=== PATIENT | male | born 1980 | race Caucasian/White ===

== ENCOUNTER 2024-11-09 20:01 | Outpatient (OUT) | payer MEDICARE, MEDICAID, SELFPAY | END 2024-11-09 20:02 | disposition home or self-care (01) | LOC: SLEEP 20:01 | PROVIDERS: PCP Family Medicine; Visit Provider Family Medicine | DX: G47.33 Obstructive sleep apnea (adult) (pediatric) (principal) | CPT/HCPCS: 95811 ==

== ENCOUNTER 2025-08-12 11:48 | Outpatient (OUT) | payer MEDICARE, MEDICAID, SELFPAY ==
--- OUTSIDE RECORDS SUMMARY | 2024-08-02 11:30 | XMS_ITS ---
Author Organization [facility] vices Address [address] [place] [phone] Care Team Providers Care Extrusion Press Supervisor Name Role Phone Mary Lou Garcia Unavailable [phone] Kenia Roberts Unavailable [phone] REASON FOR VISIT CANCEL- Rest #12-DO Social History Sex Assigned At : Social History Observation Description Sex Assigned At Male Encounters Encounter Location Date Provider Diagnosis [facility] [address] [place], [place] [phone] 08/02/2024 Kenia Roberts Plan Of Treatment No Information Progress Notes * Perez MELO MDOB: 1 (45 yo M)Acc No.[id number]:08/02/2024 Patient:?Perez Melo :?Kenia Roberts DMDDOB:1980???Age:44 Y ???Sex:MaleDate:08/02/2024hone:[phone]:[address] [place], [place] [phone] Subjective: * Chief Complaints: * C ANCEL- Rest #12-DO * Electronic signature of Kenia Roberts DMD on 08/12/2025 at 11:51 AM ESTSign off status: Pending * Provider: Naina Roberts DMD Date: 10/02/2023 Generated for Printing/Faxing/eTransmitting on:?08/12/2025 11:51 AM EST
--- OUTSIDE RECORDS SUMMARY | 2024-08-09 11:30 | XMS_ITS ---
Author Organization [facility] vices Address [address] [place] [phone] Care Team Providers Care Telephone Operators Supervisor Name Role Phone Mary Lou Garcia Unavailable [phone] Kenia Roberts Unavailable [phone] REASON FOR VISIT CANCEL- Rest #4-MOD Social History Sex Assigned At : Social History Observation Description Sex Assigned At Male Encounters Encounter Location Date Provider Diagnosis [facility] [address] [place], [place] [id number] 08/09/2024 Kenia Roberts Plan Of Treatment No Information Progress Notes * Perez MELO MDOB: 1 (45 yo M)Acc No.[id number]:08/09/2024 Patient:?Perez Melo :?Kenia Roberts DMDDOB:1980???Age:44 Y ???Sex:MaleDate:08/09/2024hone:[phone]:[address] [place], [place] [phone] Subjective: * Chief Complaints: * C ANCEL- Rest #4-MOD * Electronic signature of Kenia Roberts DMD on 08/12/2025 at 11:50 AM ESTSign off status: Pending * Provider: Naina Roberts DMD Date: 10/09/2023 Generated for Printing/Faxing/eTransmitting on:?08/12/2025 11:50 AM EST
--- OUTSIDE RECORDS SUMMARY | 2025-08-01 12:15 | XMS_ITS ---
Author Organization [facility] vices Address [address] [place] [phone] Care Team Providers Care Document Processing Specialist Name Role Phone Mary Lou Garcia Unavailable [phone] REASON FOR VISIT Rest #20-DO Social History Sex Assigned At : Social History Observation Description Sex Assigned At Male Encounters Encounter Location Date Provider Diagnosis [facility] [address] [place], [place] [phone] 08/01/2025 Mary Lou Garcia Plan Of Treatment No Information Progress Notes * Perez MELO MDOB: 1 (45 yo M)Acc No.[id number]:08/01/2025 Patient:?Perez Melo :?Mary Lou Garcia DDSDOB:1980???Age:45 Y ???Sex:MaleDate:08/01/2025Phone:[phone]:[address] [place], [place] [phone] Subjective: * Chief Complaints: * R est #20-DO * Electronic signature of Mary Lou Garcia DDS on 08/12/2025 at 11:50 AM ESTSign off status: Pending * Provider: Paulina Garcia DDS Date: 10/01/2024 Generated for Printing/Faxing/eTransmitting on:?08/12/2025 11:50 AM EST
--- OUTSIDE RECORDS SUMMARY | 2025-08-08 12:15 | XMS_ITS ---
Author Organization [facility] vices Address [address] [place] [phone] Care Team Providers Care Veneer Lathe Operator Name Role Phone Mary Lou Garcia Unavailable [phone] REASON FOR VISIT Rest # Social History Sex Assigned At : Social History Observation Description Sex Assigned At Male Encounters Encounter Location Date Provider Diagnosis [facility] [address] [place], [place] [phone] 08/08/2025 Mary Lou Garcia Plan Of Treatment No Information Progress Notes * Perez MELO MDOB: 1 (45 yo M)Acc No.[id number]:08/08/2025 Patient:?Perez Melo :?Mary Lou Garcia DDSDOB:1980???Age:45 Y ???Sex:MaleDate:08/08/2025Phone:[phone]:[address] [place], [place] [phone] Subjective: * Chief Complaints: * R est # * Electronic signature of Mary Lou Garcia DDS on 08/12/2025 at 11:50 AM ESTSign off status: Pending * Provider: Paulina Garcia DDS Date: 10/08/2024 Generated for Printing/Faxing/eTransmitting on:?08/12/2025 11:50 AM EST
--- OUTSIDE RECORDS SUMMARY | 2025-08-12 11:51 | XMS_ITS | Patient Health Record ---
Author Organization [facility] vices Address [address] [place], [place] [phone] Care Team Providers Care Furnace Cooler Name Role Phone Mary Lou Garcia Unavailable [phone] Kenia Roberts Unavailable [phone] Allergies No Known Allergies Reason For Referral No Information Medications Medication SIG (Take, Route, Frequency, Duration) Notes Start Date End Date Status Advair Diskus 250-50 MCG/ACT Aerosol Powder Breath Activated Inhalation; Duration: 30 Days Not-Taking/PRNAlbuterolActiveAdvair HFAActiveIbuprofenActivemetFORMIN HClActive Pantoprazole SodiumActiveAdderallNot-Taking/PRNFexofenadine HClActiveCetirizine HClNot-Taking/PRNStratteraActiveVentolin HFA 108 (90 Base) MCG/ACT Aerosol SolutionInhalation; Duration: 25 DaysNot-Taking/PRNVentolin HFAActive Pantoprazole Sodium 40 MG Tablet Delayed ReleaseOral; Duration: 28 Days Not-Taking/PRNAtomoxetine HClActivemetFORMIN HCl 500 MG TabletOral; Duration: 28 DaysNot-Taking/PRNAtomoxetine HCl 60 MG CapsuleOral; Duration: 28 Days Not-Taking/PRN Social History Sex Assigned At : Social History Observation Description Sex Assigned At Male Social History Tobacco Use:Social InfoQuestionAnswerNotesTobacco Control (Standard)Additional Findings: Tobacco non-userCurrent nonsmoker Problems Problem Type SNOMED Code ICD Code Onset Dates Problem Status W/U Status Risk Notes Problem Body mass index 40+ - morbidly obese (048647822) BMI 40.0-44.9, adult (Z68.41) Activeconfirmed Vital Signs Heart Rate 94 /min 07/04/2025 Blood pressure vfvmzigkg44 mm Hg07/04/2025Weight-kg156.49 kg07/04/20253166Uusiwl73 in07/04/2025lood pressure yxwqhpqa173 mm Hg07/04/20252358Aktvtd929 lbs1MI 44.29 kg/m207/04/2025 Encounters Encounter Location Date Provider Diagnosis [facility] [address] [place], [place] [phone] 09/21/2024 Kenia Hatala Dental caries into dentine K02.62 Dental [facility] [address] [place], [place] [id number] 09/30/2024 Kenia Hatala Dental caries into dentine K02.62 [facility] [address] [place], [place] [id number] 01/07/2025 Kenia Hatala Dental caries into dentine K02.62 [facility] [address] [place], [place] [id number] 04/28/2025 Mary Lou Garcia BMI 40.0-44.9, [place] Z68.41 ; Dietary counseling Z71.3 ; Exercise counseling Z71.82 and Dental caries into dentine K02.62 [facility] [address] [place], [place] [id number] 05/05/2025 Mary Lou Garcia Dental caries into dentine K02.62 [facility] [address] [place], [place] [id number] 07/04/2025 Mary Lou Garcia BMI 40.0-44.9, [place] Z68.41 ; Dietary counseling Z71.3 ; Exercise counseling Z71.82 ; Encounter for dental examination and cleaning without abnormal findings Z01.20 and Encounter for screening for dental disorders Z13.84 Assessments Encounter Date Diagnosis (ICD Code) Assessment Notes Treatment Notes Treatment Clinical Notes Section Notes 09/21/2024 Dental caries into dentine (ICD- 10 - K02.62) 09/30/2024Dental caries into dentine (ICD-10 - K02.62)01/07/2025Dental caries into dentine (ICD-10 - K02.62)04/28/2025MI 40.0-44.9, adult (ICD-10 - Z68.41) 08/14/2025Dental caries into dentine (ICD-10 - K02.62)07/04/2025MI 40.0-44.9, adult (ICD-10 - Z68.41)07/04/2025Dietary counseling (ICD-10 - Z71.3)04/28/2025 Dietary counseling (ICD-10 - Z71.3)04/28/2025Exercise counseling (ICD-10 - Z71.82)07/04/2025Exercise counseling (ICD-10 - Z71.82)04/28/2025Dental caries into dentine (ICD-10 - K02.62)07/04/2025Encounter for dental examination and cleaning without abnormal findings (ICD-10 - Z01.20)07/04/2025Encounter for screening for dental disorders (ICD-10 - Z13.84) Plan Of Treatment No Information Insurance Providers Payer Name Payer Address Payer Phone Subscriber Number Group Number Insured Name Patient Relationship to Insured Coverage Start Date Coverage End Date DMedicaid [address] [place], [place] [id number] Karin Meloelf - patient is the [id number] 2021 Medical (General) History Medical History History ICD Code asthma diabetes
--- OUTSIDE RECORDS SUMMARY | 2025-08-12 11:51 | XMS_ITS | CCD ---
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 above:Performed By: #### CAIT, CMP, CBCA #### [facility] ([id number]) [address], [address] [place], [place] [address]Cqngolgvmzd (Bld) [#/Vol]0.1 10*3/uLNormal0.0-0.4ProBaylor Scott & White Medical Center – LakewayComment on above:Performed By: #### CAIT, CMP, CBCA #### [facility] ([id number]) [address], [address] [place], [place] [address]Ktdpmsoxuie/100 WBC (Bld)1.4 %NormalBlanchard Valley Health System Comment on above:Performed By: #### CAIT, CMP, CBCA #### [facility] ([id number]) [address] [place], [place] [address]Micmhzqyhfr distribution width (RBC) [Ratio]13.0 %Normal 11.5-15.0Bl[facility] Valley Health SystemComment on above:Performed By: #### CAIT, CMP, CBCA #### [facility] ([id number]) [address], [address] [place], [place] [address]Vwohirqnlu (Bld) [Volume fraction]48.0 %Ukvgop42-87CvfPkmivqBaylor Scott & White Medical Center – LakewayComment on above:Performed By: #### HARebekah, CMP, CBCA #### [facility] ([id number]) [address], [address] [place], [place] [address]Xhdtjrowla (Bld) [Mass/Vol]16.2 g/wJKnjdjg47.0-17.0Bl[facility] Valley Health SystemComment on above:Performed By: #### HA1C, CMP, CBCA #### [facility] ([id number]) [address], [address] [place], [place] [address]Vwrcalzxspw (Bld) [#/Vol]3.7 10*3/uLHigh1.0-3.5PSt. Rita's HospitalComment on above:Performed By: #### HARebekah, CMP, CBCA #### [facility] ([id number]) [address] [place], [place] [address]Eauammrstfw/100 WBC (Bld)36.9 %NormalProBaylor Scott & White Medical Center – Lakeway Comment on above:Performed By: #### HARebekah, CMP, CBCA #### [facility] ([id number]) [address], [address] [place], [place] [address]LAX (RBC) [Entitic mass]29.0 jhLwaybx49-19QkqBvkfzzBaylor Scott & White Medical Center – LakewayComment on above:Performed By: #### HA1C, CMP, CBCA #### [facility] ([id number]) [address], [address] [place], [place] [address]QWBW (RBC) [Mass/Vol]33.8 g/mRLrhfpr38-73TgoBiunnkBaylor Scott & White Medical Center – LakewayComment on above:Performed By: #### HA1C, CMP, CBCA #### [facility] ([id number]) [address], [address] [place], [place] [address]FZQ (RBC) [Entitic vol]86 vKQrwnli23-964KoeAezbqrBlanchard Valley Health SystemComment on above:Performed By: #### HA1C, CMP, CBCA #### [facility] ([id number]) [address], [address] [place], [place] [address]Ybdrzzqnt (Bld) [#/Vol]0.5 10*3/uLNormal0-0.9Bl[facility] Valley Health SystemComment on above:Performed By: #### HA1C, CMP, CBCA #### [facility] ([id number]) [address] [place], [place] [address]Jlanllvyg/100 WBC (Bld)5.1 %[facility] Comment on above:Performed By: #### HA1C, CMP, CBCA #### [facility] ([id number]) [address], [address] [place], [place] [address]Lzwwwrqfoaz/100 WBC (Bld)56.1 %[facility] Comment on above:Performed By: #### HA1C, CMP, CBCA #### [facility] ([id number]) [address], [address] [place], [place] [address]Srvfzhsf mean volume (Bld) [Entitic vol]10.3 fLNormal7-12 [facility] SystemComment on above:Performed By: #### HA1C, CMP, CBCA #### [facility] ([id number]) [address], [address] [place], [place] [address]Jvmzvbjfj (Bld) [#/Vol]275 10*3/iPNmhjwz743-189OzkCjflouBlanchard Valley Health SystemComment on above:Performed By: #### HA1C, CMP, CBCA #### [facility] ([id number]) [address], [address] [place], [place] [address]MBM COUNT5.60 X10E12/LNormal4.10-5.70[facility] Comment on above:Performed By: #### HA1C, CMP, CBCA #### [facility] ([id number]) [address] [place] [address]HXH (Bld) [#/Vol]10.1 10*3/uLNormal4.0-11.0ProBaylor Scott & White Medical Center – LakewayComment on above:Performed By: #### CAIT CMP, CBCA #### [facility] ([id number]) [address] [place], [place] [address]UQHDMVEZASBIO METABOLIC PANELon 46-86-2450Mjaikgo [Mass/Vol]4.8 g/dLNormal3.2-5.3Pro[facility] HospitalComment on above:Performed By: #### CAIT CMP, CBCA #### [facility] ([id number]) [address] [place] [address]LEK [Catalytic activity/Vol]64 U/NIbxpnl48-022MkvKuulfvBaylor Scott & White Medical Center – LakewayComment on above:Performed By: #### CAIT CMP, CBCA #### [facility] ([id number]) [address] [place] [address]FDF [Catalytic activity/Vol]39 U/LNormal0-40ProBaylor Scott & White Medical Center – LakewayComment on above:Performed By: #### CAIT CMP, CBCA #### [facility] ([id number]) [address] [place] [address]Wcudb gap [Moles/Vol]10 mmol/LNormal5-15ProParkview Health Montpelier Hospital HospitalComment on above:Performed By: #### CAIT, CMP, CBCA #### [facility] ([id number]) [address] [place], [place] [address]CTZ [Catalytic activity/Vol]26 U/LNormal0-41ProBaylor Scott & White Medical Center – LakewayComment on above:Performed By: #### CAIT, CMP, CBCA #### [facility] ([id number]) [address] [address] [place], [place] [address]Jxshutmue [Mass/Vol]0.7 mg/dLNormal0.3-1.2PSt. Rita's HospitalComment on above:Performed By: #### BILLY CHAVIAR CBCA #### [facility] ([id number]) [address], [facility] [address] [place], [place] [address]Uxhnnhe [Mass/Vol]10.4 mg/dLNormal8.5-10.5PSt. Rita's HospitalComment on above:Performed By: #### BILLY CHAVIRA CBCCresencio #### [facility] ([id number]) [address], [facility] [address] [place], [place] [address]Uzmbarbd [Moles/Vol]101 mmol/XJkvlqh46-327SfcZjkxjxBaylor Scott & White Medical Center – LakewayComment on above:Performed By: #### BILLY CHAVIRA CBCA #### [facility] ([id number]) [address], [address] [place], [place] [address]EL0 [Moles/Vol]25 mmol/CStikjr88-77GxtLcifbcSt. Rita's Hospital Comment on above:Performed By: #### BILLY CHAVIRA CBCA #### [facility] ([id number]) [address] [place], [place] [address]Flaosnhqxh [Mass/Vol]0.83 mg/dLNormal0.60-1.30ProBaylor Scott & White Medical Center – LakewayComment on above:Result Comment: METHOD TRACEABLE TO IDMS STANDARD Performed By: #### BILLY CHAVIRA CBCA #### [facility] ([id number]) [address] [address] [address] [place], [place] [address]oUDC (CKD-EPI) NON-RACE DEPENDENT>90Normal>59ProBaylor Scott & White Medical Center – LakewayComment on above:Result Comment: Reported eGFR is based on the CKD-EPI 2020 equation that does not use a race coefficient.Performed By: #### HA1C, CMP, CBCA #### [facility] ([id number]) [address], [address] [place] [address]Drkrpwg [Mass/Vol]92 mg/bCUzzarw55-17BquKtjywzBaylor Scott & White Medical Center – Lakeway Comment on above:Performed By: #### CAIT CMP, CBCA #### [facility] ([id number]) [address] [place], [place] [address]Wodbbcuhf [Moles/Vol]3.8 mmol/LNormal3.5-5.0ProBaylor Scott & White Medical Center – LakewayComment on above:Performed By: #### CAIT CMP, CBCA #### [facility] ([id number]) [address] [place], [place] [address]Xtmyrno [Mass/Vol]7.6 g/dLNormal6.0-8.0ProBaylor Scott & White Medical Center – LakewayComment on above:Performed By: #### CAIT CMP, CBCA #### [facility] ([id number]) [address] [place], [place] [address]Mayqui [Moles/Vol]136 mmol/UFhdpvs298-693OtgZtaxeg Fremont HospitalComment on above:Performed By: #### CAIT CMP, CBCA #### [facility] ([id number]) [address] [place], [place] [address]Xlyp nitrogen [Mass/Vol]16 mg/dLNormal5-23ProBaylor Scott & White Medical Center – LakewayComment on above:Performed By: #### CAIT CMP, CBCA #### [facility] ([id number]) [address] [place], [place] [address]GSS A1C (GLYCO-HGB)on 70-62-8646Ydnuzit [Mass/Vol]117 mg/dL NormalProBaylor Scott & White Medical Center – LakewayComment on above:Performed By: #### CAIT CMP, CBCA #### [facility] ([id number]) [address] [place] [address]QeY7n (Bld) [Mass fraction]5.7 %High4.4-5.6Bl[facility] Valley Health SystemComment on above:Result Comment: NOTE ADA Guidelines Result HgbA1c Normal : less than 5.7 % Prediabetes : 5.7 % to 6.4 % Diabetes : > 6.4 % Use with caution in patients with abnormal hemoglobin variants as the half-life of red blood cells and in vivo glycation rates are affected.Performed By: #### HA1C, CMP, CBCA #### [facility] ([id number]) [address] [place] [address]DWBGEUXARDWN - ALBUMIN:CREATININE URINE RATIOon 08-16-2024 ALB/CREAT RATIO4.9 mg/g creatNormal0.0-30.0ProBaylor Scott & White Medical Center – LakewayComment on above:Performed By: #### CARLOS #### [facility] ([id number]) [address] [place] [address]Oyzaayv DL <= 20 mg/L (U) [Mass/Vol]0.8 mg/dLNormal0.0-1.9 [facility] SystemComment on above:Performed By: #### CARLOS #### [facility] ([id number]) [address] [place] [address]FRVMN CTIED246.43 mg/dLNormalProBaylor Scott & White Medical Center – LakewayComment on above:Performed By: #### CARLOS #### [facility] ([id number]) [address] [place] [address]UbdtzSkjczrgyo Documentson 72-75-2236CkdczYljcwymjh Documents [id number]#1.00TIFFNormalFisher Greater Baltimore Medical Centerinderhannibal regional hospital 82-89-9555Hriubtkvq From: Krystal Rivera To: [facility] - Reminders/Recalls; Sent: 12/01/2023 09:27:08 EDT Show up: 10/23/2033 09:26:00 EST Subject: Ambulatory Reminder Due Date/Time: 11/20/2033 09:27:00 EST Reminder/Recall Addendum by Krystal Rivera on November 27, 2023 14:26:22 EST From: Krystal Rivera ([facility] - Reminders/Recalls) To: [facility] - Reminders/Recalls; Sent: 11/27/2023 14:26:22 EST Subject: FW: General Message Due Date/Time: 11/20/2033 14:26:00 EST Caller Name: AKILAH BOWEN; Caller Number: H , Alethea Addendum by Krystal Rivera on November 27, 2023 14:25:54 EST 11/20/2033 From: Bret Singh MD To: [facility] - Clinical; [facility] - Reminders/Recalls; Sent: 11/26/2023 15:06:46 EST Subject: General Message Caller Name: AKILAH BOWEN; Caller Number: H , M repeat colon after 10 years follow up in the office if not [facility] centerNo[facility] Postoperative Documentson [id number] Documents [id number]#1.00TIFFMcKitrick HospitalMain OR Intraoperative Recordon [id number] OR Intraoperative Record IntraOp Document Type FT Summary Primary Physician: Bret Singh MD Finalized Date/Time: 11/26/23 07:39:28 Pt. Name: AKILAH BOWEN/Sex: 1980 Male Med Rec #: [id number] Physician: Francisco RO, Bret Garrido Financial #: [id number] Pt. Type: O Room/Bed: / Admit/Disch: 11/21/23 07:44:46 - 11/21/23 23:59:59 Institution: Case Times FT Entry 1 Patient Times In Room 11/21/23 08:53:00 Out Room 11/21/23 09:34:00 Procedure Times Start 11/21/23 09:02:00 Stop 11/21/23 09:29:00 Anesthesia Times Start 11/21/23 08:53:00 Stop 11/21/23 09:34:00 Time at Cec[place] 11/21/23 09:16:00 Last Modified By: Jaki Cummings RN 11/21/23 09:35:39 General Comments: EGD end time at 0911./BURKE,RN Colonoscopy start time at 0914./KS,RN 11/26/23 Chart opened to review andsend charges LRoth CSFA Case Attendance FT Entry 1 Entry 2 Entry 3 Case Attendee Alex Yi MD, Bret Cummings RN, Jaki Will Role Performed Anesthesiologist Surgeon - Primary Supervisor Nut Processing - Primary Drawer In Dobby Loom Time In 11/21/23 08:53:00 11/21/23 08:53:00 11/21/23 08:53:00 Time Out 11/21/23 09:34:00 11/21/23 09:34:00 11/21/23 09:34:00 Procedure EGD AND COLONOSCOPY(.) EGD AND COLONOSCOPY(.) EGD AND COLONOSCOPY(.) Comments Dr. Chapman is supervising Last Modified By: Emiliano DICK, Jaki Cummings RN, Jaki Cummings RN, Jaki Will 11/21/23 09:35:40 11/21/23 09:35:40 11/21/23 09:35:40 Entry 4 Case Attendee Gregg Anders Role Performed Scrub - Primary Time In 11/21/23 08:53:00 Time Out 11/21/23 09:34:00 Procedure EGD AND COLONOSCOPY(.) Comments Last Modified By: Jaki Cummings RN 11/21/23 09:35:40 Perioperative Protocols FT Pre-Care Text: Implements protective measures prior to operative or invasive procedure, confirms identity before the operative or invasive procedure, verifies operative procedure, surgical site, and laterality Entry 1 Procedure(s) EGD AND COLONOSCOPY(.) Patient Identity Birthday, ID Band Verified (select at Check, Patient least 2): Participation Consents / H and P Anesthesia Consent, Operative Site N/A Verified HandP, Surgery/Procedure Marking Verified Consent Surgical Site No Laterality Verified n/a Verified Procedure Verified Yes Correct Patient Yes Position Verified Availability Equipment, Medication Prep Dry n/a Verified (If Applicable) PreOp Antibiotic No Time Out Alex Yi, Given Participants Bret Singh MD, Emiliano DICK, Martita Amin Micala E Time Out Complete 11/21/23 08:56:00 Outcomes Met? Yes Last Modified By: Jaki Cummings RN 11/21/23 08:56:43 Post-Care Text: The patient is free from signs and symptoms of injury caused by extraneous objects Allergy Information FT Pre-Care Text: Verifies allergies Entry 1 Allergies Reviewed? Yes Allergies Reviewed Self/Patient With Outcomes Met? Yes Last Modified By: Jaki Cummings RN 11/21/23 08:56:50 Post-Care Text: The patient received appropriate medication(s) safely administered during the perioperative period Surgical Procedures FT Entry 1 Procedure Description Procedure EGD AND COLONOSCOPY Modifiers . Surgeon Description EGD with duodenal biopsy, gastric biopsy and esophagus biopsy. Colonoscopy with random colon biopsies. Primary Procedure Yes Primary Surgeon Bret Singh MD Start 11/21/23 09:02:00 Stop 11/21/23 09:29:00 Anesthesia Type General Surgical Service Gastroenterology Wound Class 2 - Clean-Contaminated Last Modified By: Jaki Cummings RN 11/21/23 09:32:04 General Case Data FT Pre-Care Text: Classifies surgical wound, implements aseptic technique, initiates traffic control Entry 1 Case Information OR ENDO 2 FT Case Level Level 2 Wound Class 2 - Clean-Contaminated Specialty Gastroenterology ASA Class 3 Preop Diagnosis BRBPR, belching, Postop Same As Preop No odynophagia Postop Diagnosis EGD- Hiatal hernia, Outcomes Met? Yes gastropathy, salmon color mucosa. Colonoscopy- Normal. Last Modified By: Jaki Cummings RN 11/21/23 09:33:10 Post-Care Text: The patient is free from signs and symptoms of infection Skin Assessment (Pre Procedure) FT Pre-Care Text: Implements protective measures to prevent skin/ tissue injury due to thermal or mechanical sources Evaluates for signs and symptoms of physical injury to skin and tissue Entry 1 Skin Integrity Intact, [place], Warm, and Outcomes Met? Yes Dry Last Modified By: Jaki Cummings RN 11/21/23 08:58:00 Post-Care Text: The patient is free from signs and symptoms of injury caused by extraneous objects Patient Positioning FT Pre-Care Text: Identifies physical alterations that require additional precautions for procedure-specific positioning, verifies presence of prosthetics or corrective devices, positions the patient, evaluates the patient for signs and symptoms of injury as a result of position (more content not included)... [facility] HospitalProgress Note-Physicianon 81-69-1989Eyuebznx Note-PhysicianPatient: AKILAH BOWEN Age: 43 years Sex: Male : 1980 Associated Diagnoses: None Author: MD Adela, Lesli Maki Postoperative Information Postoperative disposition: Postoperative disposition: To PACU. Optimetrix number: Optimetrix number [id number]. Anesthetic utilized: General. Health Status Allergies: Allergic Reactions (Selected) No Known Medication Allergies Physical Examination VS/Measurements Pain Assessment: Controlled. General: Awake, Alert, Appropriate. Respiratory: Adequate air exchange. Cardiovascular: Stable, Normal peripheral perfusion. Neurological: Normal sensory function, Normal motor function. Assessment Anesthetic outcome No anesthetic complications noted. Adequate pain relief. able to void without difficulty, able to ambulate with assist, tolerating PO intake, no N/V. Review / Management Condition: Stable. Plan Transfer/Discharge: Transfer/Discharge Discharge when meets criteria ( To home ).[facility]rick HospitalComment on above:Result Comment: Electronically Signed By: MD Chapman Ahmad F\.br\Date and Time Signed: 11/26/23 21:39 ESTProgress Note-PhysicianPatient: AKILAH BOWEN Age: 43 years Sex: Male : 1980 Associated Diagnoses: None Author: MD Adela, Ahmatobias Maki Preoperative Information Time patient last ate or drank:=== (npo 8 hours) Anesthesia history: Patient history: No prior anesthesia problems. Re-evaluation prior to induction: Completed, Initial evaluation reviewed. Review of Systems Respiratory: No shortness of breath. Cardiovascular: No chest pain. Hematology/Lymphatics: No bruising tendency, No bleeding tendency. Health Status Allergies: Allergic Reactions (All) No Known Medication Allergies Current medications: (Selected) Documented Medications Documented Advair Diskus 250 mcg-50 mcg inhalation powder: 1 puff, Inhalation, BID, Refill(s) 0, Shortness of breath or wheezing Pantoprazole [address] Tab: 40 mg = 1 tab(s), Oral, Daily, Refills(s) 0, Control of stomach acid Ventolin HFA 90 mcg/inh Aerosol-Adpt: 1 puff(s), Inhalation, q6hr Shortness of breath or wheezing, Refill(s) 0, Shortness of breath or wheezing atomoxetine 40 mg Cap: 40 mg = 1 cap(s), Oral, qAM, Refills(s) 0, Other (see comment) fexofenadine: 180 mg, Oral, Daily, Refills(s) 0, Allergy symptoms metformin 500 mg Tab: 500 mg = 1 tab(s), Oral, BID, Refills(s) 0, Blood glucose Problem list: All Problems Burping / SNOMED CT 145932885 / Confirmed Anxiety / SNOMED CT 15535898 / Confirmed Mentally disabled / SNOMED CT 274246404 / Confirmed Morbid obesity / SNOMED CT 428863050 / Confirmed Belching / SNOMED CT 076822964 / Confirmed Odynophagia / SNOMED CT 872100953 / Confirmed BRBPR (bright red blood per rectum) / SNOMED CT 065006964 / Confirmed Heartburn / SNOMED CT 31297296 / Confirmed Resolved: Loose stools / SNOMED CT 7376169190 Resolved: Dysphagia / SNOMED CT 30538946 Histories Past Medical History: Resolved Loose stools (8587396200): Resolved. Dysphagia (11975227): Resolved. Family History: Procedure history: Colonoscopy ([id number]) on 11/21/2023 at 43 Years. EGD - esophagogastroduodenoscopy ([id number]) on 11/21/2023 at 43 Years. Social History Social & Psychosocial Habits Alcohol 11/21/2023 Use: Current Type: Beer Frequency: 1-2 times per month Substance Abuse 11/21/2023 Concerns about substance abuse in household: No Tobacco 11/21/2023 Tobacco Use: Never (less than 100 in l Smokeless tobacco use: Never . Physical Examination Please see preop flow sheet Airway: Mallampati classification: II (soft palate, fauces, uvula visible). Respiratory: Lungs are clear to auscultation. Cardiovascular: Normal rate, Regular rhythm. Neurologic: Alert. Review / Management Results review Interpretation of Outside Results Chest x-ray results Radiology results ECG interpretation Condition Plan [place] [employer] (ASA) physical status classification: Class III. Anesthetic Preoperative Plan Anesthesia: General. . Anesthetic plan, risks, benefits, and alternatives discussed with the patient and/or family. Risks discussed: nausea, vomiting, headache, sore throat, dental injury, serious complications. Patient verbalized understanding. Communication: face to face with patient 5 minutes.McKitrick HospitalComment on above:Result Comment: Electronically Signed By: MD Adela, Lesli Maki\.br\Date and Time Signed: 11/26/23 21:39 ESTConsenton [id number] [id number]#1.00[facility] HospitalDischarge Instructionson [id number] Instructions [id number]#1.00TIFMercy Health St. Charles HospitalConsent for Treatmenton 51-52-2131Yvwiddw for Treatment [id number]#1.00[facility] HospitalDischarge Instructionson 39-25-2620Fwhqcahsq Instructions AKILAH BOWEN :1980 Visit Date:11/21/2023 Inpatient Discharge Instructions Your Care Team Admitting Physician - Francisco RO, Bret Garrido Referring Physician - Bret Singh MD Reason for Your Visit BRBPR, BELCHING, ODYNOPHAGIA Your Diagnosis Gastropathy Grade II internal hemorrhoids Hernia, hiatal Tests Performed Pathology Tissue Exam -- Results Pending -- Please visit your patient portal for your results or contact your primary care physician. This Is Your Medications List albuterol (Ventolin HFA 90 mcg/inh Aerosol-Adpt) atomoxetine (atomoxetine 40 mg Cap) fexofenadine fluticasone-salmeterol (Advair Diskus 250 mcg-50 mcg inhalation powder) metformin (metformin 500 mg Tab) pantoprazole (Pantoprazole [address] Tab) Discharge Vitals Temperature (Temporal Artery) 36.0 ?C Heart Rate (Monitored) 65 Respiratory Rate 19 Blood Pressure 110/66 Height 185.4 cm Weight 149.7 kg BMI 43.55 What to do next Instructions From Your Doctor No qualifying data available. New Follow Up Appointments after Discharge Follow Up with Francisco RO, Bret Garrido, [facility], [facility] When: Comments: Office will call Date and Time of Follow-up Appt. Where: [facility], [address] [place] [address]- [phone] Medications What How Much When Instructions Next Dose Unchanged albuterol (Ventolin HFA 90 mcg/ inh Aerosol-Adpt) 1 Puffs Inhalation Every 6 hours as needed for Shortness of breath or wheezing Unchanged atomoxetine (atomoxetine 40 mg Cap) 1 Capsules By Mouth Once a day (in the morning) Unchanged fexofenadine 180 Milligram By Mouth Every day Unchanged fluticasone-salmeterol (Advair Diskus 250 mcg-50 mcg inhalation powder) 1 puff Inhalation2 times a day Unchanged metformin (metformin 500 mg Tab) 1 Tablets By Mouth 2 times a day Unchanged pantoprazole (Pantoprazole [address] Tab) 1 Tablets By Mouth Every day Test Results No qualifying data available. Allergies No Known Medication Allergies Problems Ongoing - Any problem that you are currently receiving treatment for. Anxiety Belching BRBPR (bright red blood per rectum) Burping Heartburn Mentally disabled Morbid obesity Odynophagia Historical - Any problem that you are no longer receiving treatment for. Dysphagia Loose stools Education Materials Colonoscopy Care After Surgery Please read the instructions outlined below and refer to this sheet in the next few weeks. These discharge instructions provide you with general information on caring for [facility] Your doctor may also give you specific instructions. While your treatment has been planned according to the most current medical practices available, unavoidable complications occasionally occur. If you have any problems or questions after discharge, please call your doctor. ACTIVITY You may resume your regular activity, but move at a slower pace for the next 24 hours. Take frequent rest periods for the next 24 hours. Walking will help get rid of the air and reduce the bloated feeling in your abdomen (belly). No driving for 24 hours (because of the anesthesia (medicine) used during the test). You may shower. Do not sign any important legal documents or operate any machinery for 24 hours (because of the anesthesia used during the test). NUTRITION Drink plenty of fluids. You may resume your normal diet as instructed by your doctor. Begin with a light meal and progress to your normal diet. Heavy or fried foods are harder to digestand may make you feel nauseated (sick to your stomach). Avoid alcoholic beverages for 24 hours or as instructed. MEDICATIONS You may resume your normal medications unless your doctor tells you otherwise. WHAT YOU CAN EXPECT TODAY Some feelings of bloating in the abdomen. Passage of more gas than usual. Spotting of blood in your stool or on the toilet paper. FOLLOW-UP Your doctor will discuss the results of your test with you. SEEK IMMEDIATE MEDICAL ATTENTION IF: There is more than a spotting of blood in your stool. There is abdominal distention (your abdomen is swollen). There is vomiting. You have a temperature over 101.5 F. There is abdominal pain or discomfort that is severe or gets worse throughout the day. Hemorrhoids Hemorrhoids are swollen veins in and around the rectum or anus. There are two types of hemorrhoids: ? Internal hemorrhoids. These occur in the veins that are just inside the rectum. They may poke through to the outside and become irritated and painful. ? External hemorrhoids. These occur in the veins that are outside the anus and can be felt as a painful swelling or hard lump near the anus. Most hemorrhoids do not cause serious problems, and they can be managed with home treatments such as diet and lifestyle changes. If home treatments do not help the symptoms, procedures ca (more content not included)...NormalFisher Cole Medical CenterComment on above:Result Comment: Electronically Signed By: Steff Edmonds RN\.guille\Date and Time Signed: 11/21/23 10:01ESTEndoscopic Procedure Report - Otheron [id number] Procedure Report - OtherPatient: AKILAH BOWEN Age: 43 years Sex: Male : 1980 Associated Diagnoses: None Author: Bret Singh MD Pre-Procedure Procedure Date 11/14/2023 09:11:00 . Procedure Type: Colonoscopy with biopsy. Procedure provider Performed by Bret Singh MD. Current history and physical Documented on chart. No active procedure history items have been selected or recorded.. Past Medical History Resolved Loose stools (2400287294): Resolved. Dysphagia (85336074): Resolved.. Family History . Procedure History No active procedure history items have been selected or recorded.. Colorectal neoplasm risk assessment Average risk. Informed Consent After discussing the rationale, risks and benefits, and alternatives to this procedure, the patient provided signed consent for the procedure. Pre-procedure diagnosis: Hematochezia, unexplained. Medications (Selected) Inpatient Medications Ordered Sodium Chloride 0.9% IV Yamila 1000 mL 1,000 mL: 1,000 mL, IV, 20 mL/hr, Routine, Start date 11/21/23 6:39:00 EST, 50 hour(s), Total volume (mL): 1,000, 149.7 kg, 2.78, m2 Documented Medications Documented Advair Diskus 250 mcg-50 mcg inhalation powder: 1 puff, Inhalation, BID, Refill(s) 0, Shortness of breath or wheezing Pantoprazole [address] Tab: 40 mg = 1 tab(s), Oral, Daily, Refills(s) 0, Control of stomach acid Ventolin HFA 90 mcg/inh Aerosol-Adpt: 1 puff(s), Inhalation, q6hr Shortness of breath or wheezing, Refill(s) 0, Shortness of breath or wheezing atomoxetine 40 mg Cap: 40 mg = 1 cap(s), Oral, qAM, Refills(s) 0, Other (see comment) fexofenadine: 180 mg, Oral, Daily, Refills(s) 0, Allergy symptoms metformin 500 mg Tab: 500 mg = 1 tab(s), Oral, BID, Refills(s) 0, Blood glucose ASA Classification: Class III. . Monitoring: See anesthesia record. . Procedure The procedure was performed in the hospital. See anesthesia record for sedation given during procedure. Rectal exam was performed and was normal. The patient was positioned starting in the left lateral decubitus position. Endoscope type used was. The endoscope was lubricated then introduced throughthe anus. The scope was advanced to the terminal ileum. No difficulties encountered during the procedure. The bowel preparation quality was good and was adequate (see polyps greater than or equal to 6 millimeters). The patient tolerated the procedure well. Findings Internal hemorrhoids Otherwise normal colonoscopy; status post random colon biopsies Normal terminal ileum Images Procedure images: Rec1_hd_video_2023__T09_27_[id number].jpg Rec1_hd_video_2023__T09_28_01_115.jpg Rec1_hd_video_2023__T09_29_25_777.jpg Rec1_hd_video__T09_32_48_980.jpg Rec1_hd_video__T09_34_00_374.jpg Rec1_hd_video__T09_38_13_[id number].jpg . Post-Procedure Complications: none. Estimated blood loss: none. Specimens: sent to pathology. Devices/ implants: none left in place. Impression and Plan Diagnosis: Grade II internal hemorrhoids (UOS96-GS K64.1, Working, Medical). Course: Progressing as expected. Recommendations: Repeat colonoscopy:: In 10 years. Follow-up:: As needed. Diet:: Regular diet. Medication resumption:: Continue current medications. Return to activities:: After 24 hours. Education and Follow-up: Counseled: Family. Notes: Will use an Anusul cream if rectal bleeding recurs Follow-up in the office for further recommendations.NormalFisher Cole Medical CenterComment on above:Result Comment: Electronically Signed By: Bret Singh MD\.br\Date and Time Signed: 11/20/2408:34 ESTOther Comment: Missing Attachment - attachment storage system not supported [id number] Can be viewed in source systemMissing Attachment - attachment storage system not supported [id number] Can be viewed insource systemMissing Attachment - attachment storage system not supported [id number] Can be viewed in source systemMissing Attachment - attachment storage system not supported [id number] Can be viewed in source systemMissing Attachment - attachment storage system not supported [id number] Can be viewed in source systemMissing Attachment - attachment storage system not supported [id number] Can be viewed in source systemEndoscopic Procedure Report - OtherPatient: AKILAH BOWEN Age: 43 years Sex: Male : 1980 Associated Diagnoses: None Author: Bret Singh MD Pre-Procedure Procedure Date 11/14/2023 09:18:00 . Procedure Type: Esophagogastroduodenoscopy with biopsy. Procedure provider Performed by Bret Singh MD. Current history and physical Documented on chart. Informed Consent After discussing the rationale, risks and benefits, and alternatives to this procedure, the patient provided signed consent for the procedure. Pre-procedure diagnosis: Dysphagia/ odynophagia. Diarrhea, suspected small bowel disease. Medications (Selected) Inpatient Medications Ordered Sodium Chloride 0.9% IV Yamila 1000 mL 1,000 mL: 1,000 mL, IV, 20 mL/hr, Routine, Start date 11/21/23 6:39:00 EST, 50 hour(s), Total volume (mL): 1,000, 149.7 kg, 2.78, m2 Documented Medications Documented Advair Diskus 250 mcg-50 mcg inhalation powder: 1 puff, Inhalation, BID, Refill(s) 0, Shortness of breath or wheezing Pantoprazole [address] Tab: 40 mg = 1 tab(s), Oral, Daily, Refills(s) 0, Control of stomach acid Ventolin HFA 90 mcg/inh Aerosol-Adpt: 1 puff(s), Inhalation, q6hr Shortness of breath or wheezing, Refill(s) 0, Shortness of breath or wheezing atomoxetine 40 mg Cap: 40 mg = 1 cap(s), Oral, qAM, Refills(s) 0, Other (see comment) fexofenadine: 180 mg, Oral, Daily, Refills(s) 0, Allergy symptoms metformin 500 mg Tab: 500 mg = 1 tab(s), Oral, BID, Refills(s) 0, Blood glucose ASA Classification: Class III. . Monitoring: See anesthesia record. . Procedure The procedure was performed in the hospital. See anesthesia record for sedation given during procedure. The patient was positioned starting in the left lateral decubitus position. Endoscope type usedwas, introduced orally, advanced to duodenum. No difficulty was encountered during the procedure. Views were excellent. Esophageal biopsies were taken. Gastric biopsies were taken. Duodenal biopsies were taken. The patient tolerated the procedure well. Findings Z-line irregular at 39 cm 1 tongue of stomach: Mucosa (C0 M1) status post biopsies Small hiatal hernia measuring 2 cm Patchy erythema throughout the stomach, more prominent in the fundus status post biopsies Normal duodenum status post biopsies Images Procedure images: Rec_hd_video___10_093.jpg Rec_hd_video___46_148.jpg Rec_hd_video___54_399.jpg Rec_hd_video___59_315.jpg Rec1_hd_video___24_493.jpg Rec_hd_video___38_499.jpg Rec_hd_video___20_685.jpg Rec_hd_video___41_612.jpg Rec1_hd_video_2023__01T09_15_52_339.jpg . Post-Procedure Complications: none. Estimated blood loss: none. Specimens: sent to pathology. Devices/ implants: none left in place. Impression and Plan EGD: Diagnosis: Gastropathy (DMF45-OR K31.9, Working, Medical). Course: Progressing as expected. Education and Follow-up: Counseled: Family. Notes: Continue current medications Follow GERD measures Increase pantoprazole to 40 mg twice a day Further testing to be determined after assessing response to the above changes. [facility] HospitalComment on above:Result Comment: Electronically Signed By: Francisco RO, Bret Garrido\.br\Date and Time Signed: 11/20/2408:13 EST Other Comment: Missing Attachment - attachment storage system not supported [id number] Can be viewed in source systemMissing Attachment - attachment storage system not supported [id number] Can be viewed insel[facility] hospitalce systemMissing Attachment - attachment storage system not supported [id number] Can be viewed in source systemMissing Attachment - attachment storage system not supported [id number] Can be viewed in source systemMissing Attachment - attachment storage system not supported 1034382 Can be viewed in source systemMissing Attachment - attachment storage system not supported [id number] Can be viewed in source systemMissing Attachment - attachment storage system not supported [id number] Can be viewed in source systemMissing Attachment - attachment storage system not supported [id number] Can be viewed in source systemMissing Attachment - attachment storage system not supported [id number] Can be viewed in sourcesystemMain OR PACU I Record on [id number] OR PACU I RecordPACU Phase I Document Type FT Summary Primary Physician: Bret Singh MD Finalized Date/Time: 11/21/23 10:52:51 Pt. Name: AKILAH BOWEN/Sex: 1980 Male Med Rec #: [id number] Physician: Bret Singh MD Financial #: [id number] Pt. Type: O Room/Bed: / Admit/Disch: 11/21/23 07:44:46 - Institution: Case Times PACU I FT Pre-Care Text: Identifies barriers to communication and implements measures to provide psychological support Develops individualized plan of care, and ensures continuity of care Maintains patient's dignity and privacy, and maintains patient confidentiality Identifies and reports philosophical, cultural, and spiritual beliefs and values Identifies individual values and wishes concerning care Implements aseptic technique, and administers prescribed antibiotic therapy and immunizing agents as ordered Evaluates postoperative tissue perfusion Implements thermoregulation measures, and monitors body temperature Evaluates postoperative respiratory status Evaluates postoperative cardiac status Evaluates postoperative neurological status Assesses pain control, collaborated in initiating patient-controlled analgesia and implements alternative methods of pain control Verifies allergies, administers prescribed medications and solutions, evaluates response to medications Entry 1 In PACU I 11/21/23 09:36:00 Discharge from PACU 11/21/23 10:36:00 I Outcomes Met? Yes Last Modified By: Steff Edmonds RN 11/21/23 10:52:29 Post-Care Text: The patient demonstrates knowledge of the expected response to the operative or invasive procedure The patient's care is consistent with the individualized perioperative plan of care The patient's rightto privacy is maintained The patient's value system, lifestyle, ethnicity, and culture are considered, respected, and incorporated into the perioperative plan of care The patient participates in decisions affecting his or her perioperative plan of care The patient is free from signs and symptoms of infection The patient has wound/tissue perfusion consistent with or improved from baseline levels established preoperatively The patient is at or returning to normothermia at the conclusion of the immediate postoperative period The patient's respiratory function is consistent with or improved from baseline levels established preoperativelyThe patient's cardiovascular status is consistent with or improved from baseline levels established preoperatively The patient's cardiovascular status is consistent with or improved from baseline levels established preoperatively The patient demonstrates and/or reports adequate pain control throughout the perioperative period The patient received appropriate medication(s), safely administered during the perioperativeperiod Acuity Level PACU I FT Entry 1 Start Time 11/21/23 09:36:00 Stop Time 11/21/23 10:36:00 Acuity Level Acuity Level I Last Modified By: Steff Edmonds RN 11/21/23 10:52:50 Finalized By: Steff Edmonds RN Document Signatures Signed By: Steff Edmonds RN 11/21/23 10:52[facility] OR Preoperative Recordon [id number] OR Preoperative RecordHolding Area Document Type FT Summary Primary Physician: Bret Singh MD Finalized Date/Time: 11/21/23 08:22:15 Pt. Name: AKILAH BOWEN Michelle/Sex: 1980 Male Med Rec #: [id number] Physician: Bret Singh MD Financial #: [id number] Pt. Type: O Room/Bed: / Admit/Disch: 11/21/23 07:44:46 - Institution: Case Times Holding FT Pre-Care Text: Verifies consent for planned procedure, identifies individual values and wishes concerning care, includes family members in perioperative teaching Secures patient's records' belongings, and valuables, maintains patient's dignity and privacy, and maintains patient confidentiality Entry 1 In Holding 11/21/23 08:00:00 Outcomes Met? Yes Last Modified By: Renetta Vogt 11/21/23 08:21:29 Post-Care Text: The patient participates in decisions affecting his or her perioperative plan of care The patient'sright to privacy is maintained Surgery Checklist FT Entry 1 Patient Birthday, Blood Band, Procedure History and Physical, Identification: Patient Participation Verification: Surgical Consent, With Family, With Patient NPO after Midnight: No Date/Time: 11/21/23 02:00:00 Complaints of Pain: No Pain Comment: none Operative Site n/a Availability Equipment Marking: Verified: Does Patient Smoke Yes Patient states Yes Comment - Adult Ahsan postop adult Supervision supervision available Case Cancelled in No Holding Area see comments below for reason Last Modified By: Renetta Vogt 11/21/23 08:22:12 Finalized By: Renetta Vogt Document Signatures Signed By: Renetta Vogt 11/21/23 08:22NoMartin Memorial HospitalMonitor Recordon [id number] Record [id number] HospitalPatient Education - Texton 08-95-9310Zvpxpdn Education - TextColonoscopy Care After Surgery Please read the instructions outlined below and refer to this sheet in the next few weeks. These discharge instructions provide you with general information on caring for yourself [facility] Your doctor may also give you specific instructions. While your treatment has been planned according to the most current medical practices available, unavoidable complications occasionally occur. If you have any problems or questions after discharge, please call your doctor. ACTIVITY You may resume your regular activity, but move at a slower pace for the next 24 hours. Take frequent rest periods for the next 24 hours. Walking will help get rid of the air and reduce the bloated feeling in your abdomen (belly). No driving for 24 hours (because of the anesthesia (medicine) used during the test). You may shower. Do not sign any important legal documents or operate any machinery for 24 hours (because of the anesthesia used during the test). NUTRITION Drink plenty of fluids. You may resume your normal diet as instructed by your doctor. Begin with a light meal and progress to your normal diet. Heavy or fried foods are harder to digestand may make you feel nauseated (sick to your stomach). Avoid alcoholic beverages for 24 hours or as instructed. MEDICATIONS You may resume your normal medications unless your doctor tells you otherwise. WHAT YOU CAN EXPECT TODAY Some feelings of bloating in the abdomen. Passage of more gas than usual. Spotting of blood in your stool or on the toilet paper. FOLLOW-UP Your doctor will discuss the results of your test with you. SEEK IMMEDIATE MEDICAL ATTENTION IF: There is more than a spotting of blood in your stool. There is abdominal distention (your abdomen is swollen). There is vomiting. You have a temperature over 101.5 F. There is abdominal pain or discomfort that is severe or gets worse throughout the day. Gastroenterology Hemorrhoids Hemorrhoids are swollen veins in and around the rectum or anus. There are two types of hemorrhoids: ? Internal hemorrhoids. These occur in the veins that are just inside the rectum. They may poke through to the outside and become irritated and painful. ? External hemorrhoids. These occur in the veins that are outside the anus and can be felt as a painful swelling or hard lump near the anus. Most hemorrhoids do not cause serious problems, and they can be managed with home treatments such as diet and lifestyle changes. If home treatments do not help the symptoms, procedures can be done toshrink or remove the hemorrhoids. What are the causes? This condition is caused by increased pressure in the anal area. This pressure may result from various things, including: ? Constipation. ? Straining to have a bowel movement. ? Diarrhea. ? . ? Obesity. ? Sitting for long periods of time. ? Heavy lifting or other activity that causes you to strain. ? Anal sex. ? Riding a bike for a long period of time. What are the signs or symptoms? Symptoms of this condition include: ? Pain. ? Anal itching or irritation. ? Rectal bleeding. ? Leakage of stool (feces). ? Anal swelling. ? One or more lumps around the anus. How is this diagnosed? This condition can often be diagnosed through a visual exam. Other exams or tests may also be done,such as: ? An exam that involves feeling the rectal area with a gloved hand (digital rectal exam). ? An exam of the anal canal that is done using a small tube (anoscope). ? A blood test, if you have lost a significant amount of blood. ? A test to look inside the colon using a flexible tube with a camera on the end (sigmoidoscopy or colonoscopy). How is this treated? This condition can usually be treated at home. However, various procedures may be done if dietary changes, lifestyle changes, and other home treatments do not help your symptoms. These procedures canhelp make the hemorrhoids smaller or remove them completely. Some of these procedures involve surgery, and others do not. Common procedures include: ? Rubber band ligation. Rubber bands are placed at the base of the hemorrhoids to cut off their blood supply. ? Sclerotherapy. Medicine is injected into the hemorrhoids to shrink them. ? Infrared coagulation. A type of light energy is used to get rid of the hemorrhoids. ? Hemorrhoidectomy surgery. The hemorrhoids are surgically removed, and the veins that supply them are tied off. ? Stapled hemorrhoidopexy surgery. The surgeon jodie the base of the hemorrhoid to the rectal wall. Follow these instructions at home: Eating and drinking ? Eat foods that have a lot of fiber in them, such as whole grains, beans, nuts, fruits, and vegetables. ? Ask your health care provider about taking products that have added fiber (fiber supplements). ? Reduce the amount of fat in your diet. You (more content not included)... NormalProtestant Deaconess HospitalC w/ Auto Diffon [id number] Absolute 0.1 E9/LNormal0.0-0.2FUK HealthcareComment on above:Performed By: #### [id number] ####[address] [address]Bqdvvoriy/100 WBC (Bld)1.3 %Normal0.0-2.0[facility] Comment on above:Performed By: #### [id number] ####[address] [id number] Absolute0.2 E9/LNormal0.0-0.5 The [facility] Hospital At SouthwoodsComment on above:Performed By: #### [id number] ####[address] [address] Eosinophils/100 WBC (Bld)1.7 %Normal0.0-8.0The [facility] Hospital At SouthwoodsComment on above:Performed By: #### [id number] ####[address] [address]Lwdikekhdpj distribution width (RBC) [Ratio]14.1 % Almoyl96.9-14.2FUK HealthcareComment on above:Performed By: #### [id number] ####[address] [address]Nnepmedfpu (Bld) [Volume fraction]48.0 %Mtcstw06.7-49.0The [facility] Hospital At SouthwoodsComment on above:Performed By: #### [id number] ####[address] [address]Ojssmarjzc (Bld) [Mass/Vol] 15.8 g/bEZctrej82.5-17.5FUK HealthcareComment on above:Performed By: #### [id number] ####[address], [place] [address]Pnckn Absolute3.9 E9/LNormal1.0-4.0The [facility] Hospital At SouthwoodsComment on above:Performed By: #### [id number] ####[address] [address]Nasmrfuhevc/100 WBC (Bld)38.7 %Anhqlt27.0-50.0The [facility] Hospital At SouthwoodsComment on above:Performed By: #### [id number] ####[address] [address]XQY (RBC) [Entitic mass]27.7 ieIwblns05.0-34.0[facility] Comment on above:Performed By: #### [id number] ####[address] [address]PHKW (RBC) [Mass/Vol]33.2 g/dLNormal 31.4-36.0The [facility] Hospital At SouthwoodsComment on above:Performed By: #### [id number] ####[address] [address]VYS (RBC) [Entitic vol]83.6 aHCaonpk23.0-100.0The [facility] Hospital At SouthwoodsComment on above:Performed By: #### [id number] ####[address] [address]Qmsh Absolute0.6 E9/LNormal0.2-1.0The [facility] Hospital At SouthwoodsComment on above:Performed By: #### [id number] ####[address] [address]Gsjrmjxei/100 WBC (Bld)5.8 %Normal4.0-14.0The [facility] Hospital At SouthwoodsComment on above:Performed By: #### [id number] ####[address] [address]Elikcg Absolute5.3 E9/LNormal2.0-7.5FUK HealthcareComment on above:Performed By: #### [id number] ####Matthew [address] [address]Qokuax Auto52.5 %Normal 36.0-75.0The [facility] Hospital At SouthwoodsComment on above:Performed By: #### [id number] ####Matthew [address] [address] Qyqpbjys527.0 E9/BNaubfq274.0-500.0The [facility] Hospital At SouthwoodsComment on above: Performed By: #### [id number] ####Castro [address] [address]Hqvmvwln mean volume (Bld) [Entitic vol]9.1 fL Normal6.4-10.8The [facility] Hospital At SouthwoodsComment on above:Performed By: #### [id number] ####[address] [address]QJK4.7 E12/LNormal4.3-5.9The [facility] Hospital At SouthwoodsComment on above: Performed By: #### [id number] ####[address] [address]GZU65.1 E9/LNormal4.0-11.0The [facility] Hospital At SouthwoodsComment on above:Performed By: #### [id number] ####Castro [address] [address]Ijybexg for Treatmenton 05-61-0521Qjsgsnb for [id number]#1.00TIFF [facility] HospitalConsent for Treatment [id number]#1.00TIFFNormalThe Surgical Hospital At SouthwoodsHEMATOLOGYOrdered By: SYSTEM SYSTEM on 78-76-0720Cunqqabu Absolute0.1 E9/L Normal0.0 - 0.2 E9/LRemisol HemeBasophils/100 WBC (Bld)1.3 %Normal0.0 - 2.0 % Remisol HemeEos Absolute0.2 E9/LNormal0.0 - 0.5 E9/LRemisol HemeEosinophils/100 WBC (Bld)1.7 %Normal0.0 - 8.0 %Remisol HemeErythrocyte distribution width (RBC) [Ratio]14.1 %Olgljh12.9 - 14.2 %Remisol HemeHematocrit (Bld) [Volume fraction] 48.0 %Tbuzah93.7 - 49.0 %Remisol HemeHemoglobin (Bld) [Mass/Vol]15.8 g/dLNormal 13.5 - 17.5 gm/dLRemisol HemeLymph Absolute3.9 E9/LNormal1.0 - 4.0 E9/LRemisol HemeLymphocytes/100 WBC (Bld)38.7 %Klgrrw69.0 - 50.0 %Remisol HemeMCH (RBC) [Entitic mass]27.7 hiLkvpoi10.0 - 34.0 pgRemisol HemeMCHC (RBC) [Mass/Vol]33.2 g/kRXitene71.4 - 36.0 gm/dLRemisol HemeMCV (RBC) [Entitic vol]83.6 bYEuoljz10.0 - 100.0 fLRemisol HemeMono Absolute0.6 E9/LNormal0.2 - 1.0 E9/LRemisol Heme Monocytes/100 WBC (Bld)5.8 %Normal4.0 - 14.0 %Remisol HemeNeutro Absolute5.3 E9/LNormal2.0 - 7.5 E9/LRemisol HemeNeutro Auto52.5 %Azcgmp39.0 - 75.0 %Remisol HayfBlcanexu282.0 E9/SElrchr013.0 - 500.0 E9/LRemisol HemePlatelet mean volume (Bld) [Entitic vol]9.1 fLNormal6.4 - 10.8 fLRemisol HemeRBC5.7 E12/LNormal4.3 - 5.9 E12/LRemisol UahjVLN95.1 E9/LNormal4.0 - 11.0 E9/LRemisol HemeConsent for Procedure/Surgeryon 99-01-9150Zpvrbtn for Procedure/Surgery [id number]#1.00TIFFNormalFisher [facility] And HospitalGastroenterology Office/Clinic Noteon [id number] Office/Clinic NoteChief Complaint Belching and tenderness when swallowing. HPI Staff This is a 43 year old male who presents today for a sick call for complaints of gas pain and diarrhea. EGD and Colon ordered at visit w/ Dr Cote 01/08/23, was unable to get completed d/t in family. Patient states that gas pain and diarrhea have improved. Patient c/o belching and tenderness when swallowing. History of Present Illness Patient is a 43-year-old male who presents for further evaluation of gas. Presents with his caregiver today. Patient was previously evaluated by Dr. Cote 12/2022 for loose stool, dysphagia. Note indicated patient with history of vomiting, developmental disability, and heartburn. Patient was ordered EGD/colonoscopy, patient was educated to continue pantoprazole. Patient was also ordered celiac serology andstool testing. No EGD/colonoscopy completed. Previous stool testing 12/2022 revealed normal fecal pancreatic elastase. FH stomach cancer- patient's mother. No labs available to review during today's encounter. Family history of colon cancer: Denies. Family history of colon polyps: Denies. Personal history of colon cancer: Denies. Personal history of colon polyps: Denies. Anticoagulation therapy: Denies. Antiplatelet therapy: Denies. During today's visit, patient reports he is having a lot of belching over the last year, occurring daily. He reports heartburn is well-controlled with pantoprazole 40mg daily. He explains when he swallows he has pain with solids and liquids, occurring 2-3 times a week. Is having 1 formed BM daily. Is having BRBPR with wiping on toilet paper daily over the last 6 months. Has occasional rectal painwith BRBPR. Denies having to push/strain to have a BM. Denies dysphagia, black/bloody stools, nausea/vomiting, fevers/chills, diarrhea, and denies having any other GI complaints. Review of Systems PHQ Score Initial Depression Screen Score: 0 SCORE ROS - Provider Constitutional: no fever, no chills. Skin: no Jaundice. ENMT: Denies heartburn. Respiratory: no shortness of breath. Cardiovascular: no chest pain. Gastrointestinal: no nausea, no vomiting, no diarrhea. See HPI for details regarding. Physical Exam Vitals & Measurements T: 36.4 ?C(Temporal Artery) HR: 90(Peripheral) BP: 116/80 HT: 73 in HT: 185.4 cm WT: 149.7 kg WT: 329.34 lb BMI: 43.55 General: Well developed, well nourished, in no acute distress Head: Normocephalic/atraumatic Lungs: Normal respiratory effort and clear to auscultation Cardio: Regular rate and rhythm, normal S1 and S2, no murmur, no rub Abdomen: Soft, non-distended, non-tender. Normoactive bowel sounds present in all 4 abdominal quadrants, bilaterally. Mental Status: Alert and oriented x3. Normal mood and affect Assessment/Plan 1. Belching (R14.2: Eructation) Is having a lot of belching over the last year, occurring daily. Ordered EGD to evaluate for PUD. Continue pantoprazole 40mg daily. Ordered: EGD Endoscopy (Hospital Procedure) 2. Odynophagia (R13.10: Dysphagia, unspecified) Per patient's verbalization, when swallows, he has pain with solids and liquids, occurring 2-3 times a week. Ordered EGD to further evaluate. Ordered: EGD Endoscopy (Hospital Procedure) 3. BRBPR (bright red blood per rectum) (K62.5: Hemorrhage of anus and rectum) Is having BRBPR with wiping on toilet paper daily over the last 6 months. Ordered CBC. Ordered Colonoscopy. Ordered: CBC w/ Auto Diff Colonoscopy (Hospital Procedure) 4. Heartburn (R12: Heartburn) Controlled with pantoprazole. Continue Pantoprazole 40mg daily. Follow-up With When Contact Information Qi Hernandez CNP Within 1 to 2 weeks Additional Instructions: Following EGD/Colonoscopy. Patient Education Colonoscopy, Adult Problem List/Past Medical History Ongoing Anxiety Belching BRBPR (bright red blood per rectum) Burping Heartburn Mentally disabled Morbid obesity Odynophagia Historical Dysphagia Loose stools Medications Advair Diskus 250 mcg-50 mcg inhalation powder atomoxetine 40 mg Cap fexofenadine, Oral metformin 500 mg Tab Pantoprazole [address] Eber Nyttera, Oral, qAM Sutab oral tablet, See Instructions Ventolin HFA 90 mcg/inh Aerosol-Adpt Allergies No Known Medication Allergies Social History Alcohol Current, Beer, 1-2 times per month, 01/08/2023 Substance Abuse Household substance abuse concerns: No., 01/08/2023 Tobacco Never (less than 100 in lifetime) Tobacco Use:. Never Smokeless Tobacco Use:., 11/03/2023 Family History Cancer: Negative: Mother. Immunizations Vaccine Date Status influenza virus vaccine, inactivated 07/11/2022 Recorded SARS-CoV-2 (COVID-19) mRNA-1273 vaccine 09/19/2021 Recorded SARS-CoV-2 (COVID-19) mRNA-1273 vaccine 10/30/2020 Recorded SARS-CoV-2 (COVID-19) mRNA-1273 vaccine 10/02/2020 RecordedMcKitrick HospitalComment on above:Result Comment: Electronically Signed By: Mary CUNHA, Qi Dupont\.br\Date and Time Signed: 11/03/23 14:03 ESTCOVID/FLU/RSV RT-PCRon 06-12-1209GPNH-CoV-2 (COVID-19) RNA MYRON+probe Ql (Unsp spec)Positive [employer] [facility] [place] [employer] Other COVID/FLU/RSV RT-PCRNegativeNoFTAPI SoftwareSuburban Community Hospital [place] [facility]ipherals Other Lab Reportson 29-45-9866Ddk Reports [id number]#1.00CD:[address] [place], [place] [address]Lab [id number]#1.00CD:[address] [place], [place] [address]Consent for Procedure/Surgeryon 55-57-0084Kntrsqo for Procedure/[id number]#1.00CD:[address] [place], [place] [address]Gastroenterology Office/Clinic Noteon 01-09-2023 Gastroenterology Office/Clinic NoteChief Complaint burping, loose stools and dysphagia HPI Staff Patient is a 42 year old male who was referred by House for burping, loose stools, dysphagia and food gets stuck in throat. US & labs done @ [facility]. History of Present Illness Akilah Bowen is a 42-year-old male referred by Dr. Zapata for eructation, loose stool, and dysphagiawith food becoming stuck. He has been developmentally disabled since and is accompanied by his sister who is the primary historian. However, he has no official diagnosis for his developmental delay. His symptoms began in 09/2022 after he presented to the ER for chest pain and near syncope. His dysphagia occurs intermittently and he last had an episode of dysphagia yesterday while eating pork chops. He has prior history of vomiting, eructation, heartburn, and acid reflux. Since cutting out sodaand fried foods, he has had improvement in these symptoms. He currently takes pantoprazole. He complains of loose stool intermittently, but denies hematochezia or melena. His sister reports that when he becomes anxious, he uses the bathroom more often. Review of Systems PHQ Score Initial Depression Screen Score: 0 Constitutional: no fever, no chills, no sweats, no weakness Skin: no Jaundice, no rash, no lesions, no petechiae ENMT: no ear pain, no sore throat, no congestion, no hoarseness Respiratory: no shortness of breath, no cough, no orthopnea, no wheezing Cardiovascular: no chest pain, no palpitations, no edema Gastrointestinal: no nausea, no vomiting, no constipation, no GI bleeding, no bloating, no heartburn. Positive for dysphagia, eructation, loose stool, and anxiety. Genitourinary: no dysuria, no hematuria, no discharge, no pain Musculoskeletal: no back pain, no trauma Neurologic: no numbness, no sleeping problems Additional ROS info: Except as noted in the above Review of Systems and in the History of Present Illness all other systems have been reviewed and are negative or noncontributory Physical Exam Vitals & Measurements HR: 78(Peripheral) RR: 16 BP: 112/78 HT: 73 in HT: 185.4 cm WT: 149 kg WT: 327.8 lb BMI: 43.35 Constitutional: Appearance: well developed Skin: Inspection: no rashes, ulcers, icterus, or telangiectasias. Eyes: Conjunctivae/lids: normal conjunctivae and lids. ENMT: Hearing: within normal limits. Lips/Teeth/Gums: normal oral mucosa Neck: Neck: normal motion, central trachea Respiratory: Percussion: thorax normoresonant. Auscultation: normal breath sounds; no rubs, wheezes, rale or rhonchi. Cardiovascular: Auscultation: normal rhythm, S1 and S2; no rubs, murmurs or gallop. Peripheral: no edema Gastrointestinal/Abdomen: Abdomen: normal consistency and bowel sounds; no tenderness or masses. Liver/Spleen: normal size and consistency, not palpable. Rectal: deferred Musculoskeletal: Gait/station: normal gait Assessment/Plan 1. Dysphagia (R13.10: Dysphagia, unspecified) Especially with his age, it can be related to eosinophilic esophagitis leading to esophageal narrowing with multiple episodes of food becoming stuck. I emphasized the importance of continuing with pantoprazole. We will proceed with EGD with biopsy to the esophagus to rule out that diagnosis. Other possibilities include acid reflux-induced esophagitis, peptic ulcer disease, and esophageal ulcer. We will also evaluate for all of them during the upcoming EGD. 2. Burping (R14.2: Eructation) This could be related to gastritis, esophagitis, and peptic ulcer disease. We will also evaluate that during the upcoming EGD and we will continue with pantoprazole meanwhile. 3. Loose stools (R19.5: Other fecal abnormalities) We will proceed with testing to rule out chronic etiology including celiac disease with blood testing. We will proceed with a colonoscopy to rule out Crohn's disease. We will also do stool testing torule out ova and parasites and Giardia. 4. Morbid obesity (E66.01: Morbid (severe) obesity due to excess calories) Obesity affects most of the GI related symptoms including diarrhea. He was advised to cut down on carbs and fat to control his symptoms. He was encouraged to continue decreasing his weight and following a healthy diet. 5. Anxiety (F41.9: Anxiety disorder, unspecified) We discussed that this can worsen any GI symptoms including nausea, abdominal pain, and diarrhea. Controlling the anxiety is essential and he was advised to speak with his primary care physician about this. 6. Mentally disabled (F79: Unspecified intellectual disabilities) Documentation services were performed after patient or guardian consented to allow [employer] to record this visit. ELDON health communications specialist and provider reviewed before signing. ELDON: Evelina Mendoza. Follow-up No qualifying data available Problem List/Past Medical History Ongoing Anxiety Burping Dysphagia Loose stools Mentally disabled Morbid obesity Historical No qualifying data Medications Advair Diskus 250 (more content not included)...[facility]rick HospitalComment on above:Result Comment: Electronically Signed By: Evelina Mendoza\.br\Date and Time Signed: 01/08/23 11:45 EDT\.br\Electronically Co-Signed By: Kay COTE MD\.br\Date and Time Co-Signed: 01/09/23 09:58 EDTAmbulatory Visit Summaryon [id number] Visit Summary AKILAH BOWEN :1980 Visit Date:01/08/2023 Ambulatory Visit Instructions Your Diagnosis Dysphagia Burping Loose stools Morbid obesity Anxiety Mentally disabled Your Care Team Attending Physician - Kay COTE MD Primary Care Physician - House Haseeb TRIVEDI Referring Physician - [place] Haseeb TRIVEDI This Is Your Medications List Contact prescribing physician if questions or concerns albuterol (Ventolin HFA 90 mcg/inh Aerosol-Adpt) atomoxetine (atomoxetine 40 mg Cap) fluticasone-salmeterol (Advair Diskus 250 mcg-50 mcg inhalation powder) metformin (metformin 500 mg Tab) pantoprazole (Pantoprazole [address] Tab) Discharge Vitals Heart Rate (Peripheral) 78 Respiratory Rate 16 Blood Pressure 112/78 Height 185.4 cm Height 73 in Weight 149 kg Weight 327.8 lb BMI 43.35 What to do next You Need to Complete the Following Calprotectin, Fecal, Stool, Routine collect, 01/08/23, Order for future visit, Nurse collect, Loosestools, Print Label By Order Location Fecal WBC Lactoferrin, Stool, Routine collect, 01/08/23, Order for future visit, Nurse collect, Loose stools, Print Label By Order Location Giardia lamblia, Direct Detection EIA, Stool, Routine collect, 01/08/23, Order for future visit, Nurse collect, Loose stools, Print Label By Order Location IgA, Quant., Blood, Routine collect, 01/08/23, Order for future visit, Lab Collect, Loose stools, Print Label By Order Location O & P Exam, Routine, Stool, Routine collect, 01/08/23, Order for future visit, Nurse collect, Loose stools, Print Label By Order Location Pancreatic Elastase, Fecal, Stool, Routine collect, 01/08/23, Order for future visit, Nurse collect, Loose stools, Print Label By Order Location t-Transglutaminase IgA, Blood, Routine collect, 01/08/23, Order for future visit, Lab Collect, Loose stools, Print Label By Order Location Medications What When Instructions Unchanged albuterol (Ventolin HFA 90 mcg/ inh Aerosol-Adpt) Contact prescribing physician if questions or concerns Unchanged atomoxetine (atomoxetine 40 mg Cap) Contact prescribing physician if questions or concerns Unchanged fluticasone-salmeterol (Advair Diskus 250 mcg-50 mcg inhalation powder) Contact prescribing physician if questions or concerns Unchanged metformin (metformin 500 mg Tab) Contact prescribing physician if questions or concerns Unchanged pantoprazole (Pantoprazole [address] Tab) Contact prescribing physician if questions or concerns Allergies No Known Medication Allergies Problems Ongoing - Any problem that you are currently receiving treatment for. Anxiety Burping Dysphagia Loose stools Mentally disabled Morbid obesity [facility] SINGLE QUAD RT UPPERon [id number] SINGLE QUAD RT UPPEREXAM: US SINGLE QUAD RT UPPER EXAM DATE: 11/09/2022 5:39 AM MST COMPARISON: None available. INDICATION: Right upper quadrant pain. TECHNIQUE: Limited ultrasound of the right upper quadrant of abdomen was performed. Images were reviewed on a separate workstation. FINDINGS: Hepatic parenchyma is diffusely echogenic. Hepatic length measures 20.6 cm. No focal intraparenchymal abnormality detected. Gallbladder is partially contracted. No intraluminal echogenic abnormality seen. No gallbladder wall thickening or pericholecystic fluid noted. Gallbladder wall measures 1.9 mm. Sonographic Salgado's sign is absent. No intrahepatic or extrahepatic biliary ductal dilatation noted. CBD measures 1.8 mm. Portal vein is patent with hepatopetal flow. Pancreas is partially obscured by bowel gas; visualized parenchyma appears homogeneous. Right kidney measures 11.6 x 7 x 7 cm (297 mL). No hydronephrosis or nephrolithiasis noted. No free fluid noted in the right upper abdomen. IMPRESSION: 1. Hepatic steatosis. 2. No gallstones or bile duct dilation identified. Sonographic Salgado's sign is absent. Electronically authenticated by: KARIS LAL Date: 2022-11-09 13:11[facility] HospitalNM STRESS/REST MULTIon [id number] STRESS/REST MULTIPatient: AKILAH BOWEN Exam Date: 10/24/2022 : 1980 Gender:M Ordering : DR HASEEB ZAPATA D.O. Admission #: [id number] Family : Order #: [id number] CLICK HERE TO VIEW EXAM RADIOLOGY REPORT PROCEDURE: RADIONUCLIDE IMAGING STRESS/REST MULTI COMPARISON: None. INDICATIONS: Chest pain TECHNIQUE: Exam Description: Stress/Rest two day protocol gated SPECT Rest Imagin.5 mCi Tc-99m Cardiolite IV on 10/25/2022 Stress Imaging 25.0 mCi Tc-99m Cardiolite IV on 10/24/2022 Exercise Protocol: 0.4 mg Lexiscan given IV Heart Rate (bpm): Rest: 84 Max: 110 PMHR: 61 Blood Pressure: Rest: 108/78 Max: 126/78 Symptoms: Rest and peak stress ECG findings were normal and the exercise portion of the study was normal per attending physician Dr. Fernandez . For more details please see separate cardiac stress test report. FINDINGS: QUALITY OF STUDY: Good. PERFUSION DEFECT: LOCATION: Basal inferior. Mid-inferior. Apical anterior. Apical inferior. [place]. SIZE: Large (5 or more segments). SEVERITY: Moderate. TYPE: Persistent. WALL MOTION: Normal. LV SIZE: Normal. 112 mL. TID / TCD: None; 0.9 LVEF: Normal. Calculated EF 69%. SUMMARY: Myocardial perfusion imaging study has ABNORMAL findings. CONCLUSION: 1. Areas fixed perfusion abnormality, no definite reversible ischemia 2. Normal exercise test Dictated by: Nikolas Luis MD on 10/25/2022 at 11:34 Approved by: Nikolas Luis MD on 10/25/2022 at 12:29[facility] GLYCOHEMOGLOBIN A1Con [id number] RECOMMENDATIONSEE BELOWMemorial Health System Marietta Memorial HospitalComment on above:Result Comment: ADA RECOMMENDED LIMIT 4.0 - 6.0 ADA THERAPEUTIC TARGET < 7.0 ACTION SUGGESTED > 7.0Performed By: #### A1C #### [facility] [address] [place] [address] Dr. Demetris BreauxGlucose [Mass/Vol]163 mg/dLNormalThe [facility] HospitalComment on above:Performed By: #### A1C #### [facility] [address] [address] [address] Demetris BreauxHbA1c (Bld) [Mass fraction]7.3 %Critically high4.5-6.2The [facility] HospitalComment on above:Performed By: #### A1C #### [facility] [address] [address] [address] Demetris Desai NICK ADMITon [id number] [Catalytic activity/Vol]130 U/L Cpuuum07-384Ppm [facility] HospitalComment on above:Performed By: #### CMADM, LIPA, CMP #### [facility] [address] [address] [address] Demetris Rae.MB [Mass/Vol]0.81 ng/mLNormal<=3.60[facility] Comment on above:Performed By: #### CMADM, LIPA, CMP #### [facility] [address] [place] [address] Dr. Demetris SaldañaTROP<4.4Mrlqiy6.0-76.1[facility] on above: Result Comment: CUT-OFF POINTS HAVE BEEN ESTABLISHED BASED ON THE FOURTH UNIVERSAL DEFINITIONS OF MYOCARDIAL INFARCTION. THE UPPER REFERENCE LIMIT (URL) OF TROPONIN, DEFINED THE 99TH PERCENTILE OF cTnI DISTRIBUTION IN A REFERENCE POPULATION, HAS BEEN CONFIRMED THE DECISION THRESHOLD FOR [place] DIAGNOSIS.Performed By: #### CMADM, LIPA, CMP #### [facility] [address] [place] [address] Dr. Demetris BreauxMYO52 ng/sHLbhjze47-02Yza [facility] HospitalComment on above: Performed By: #### CMADM, LIPA, CMP #### [facility] [address] [place] [address] Dr. Demetris Velazquez AUTO DIFFon [id number] #0.1 103/ulNormal0.0-0.1The [facility] HospitalComment on above:Performed By: #### CBC #### [facility] [address] [address] [address] Demetris BreauxBasophils/100 WBC (Bld)0.6 %Normal0.2-2.0[facility] Comment on above:Performed By: #### CBC #### [facility] [address] [address] [address] Demetris Weiss #0.3 103/ulNormal0.0-0.7The [facility] HospitalComment on above: Performed By: #### CBC #### [facility] [address] [place] [address] Dr. Demetris Guoosinophils/100 WBC (Bld)2.3 %Normal0.9-7.0[facility] Comment on above:Performed By: #### CBC #### [facility] [address] [place] [address] Dr. Demetris Guorythrocyte distribution width (RBC) [Ratio]12.9 %Zqghpy61.0-15.0 The [facility] HospitalComment on above:Performed By: #### CBC #### [facility] [address] [place] [address] Dr. Demetris BreauxHematocrit (Bld) [Volume fraction]43.9 %Hhbbil52.0-54.0The [facility] HospitalComment on above:Performed By: #### CBC #### [facility] [address] [place] [address] Dr. Demetris BreauxHemoglobin (Bld) [Mass/Vol]15.1 g/eGCrsflo22.0-18.0The [facility] HospitalComment on above:Performed By: #### CBC #### [facility] [address] [place] [address] Dr. Demetris Carter #0.04 10e3/ulCritically high0.00-0.03[facility] Comment on above:Performed By: #### CBC #### [facility] [address] [place] [address] Dr. Demetris Carter %0.4 %Normal0.0-0.5The Elli HospitalComment on above: Performed By: #### CBC #### [facility] [address] [address] [address] Demetris Garcia #3.3 103/ulNormal1.2-3.8[facility] on above:Performed By: #### CBC #### [facility] [address] [address] [address] Demetris Witthocytes/100 WBC (Bld)29.5 %Przuyc45.5-60.0The [facility] HospitalComment on above:Performed By: #### CBC #### [facility] [address] [place] [address] Dr. Demetris Molina DIFF REQNONormalThe [facility] HospitalComment on above: Performed By: #### CBC #### [facility] [address] [place] [address] Dr. Demetris Smith (RBC) [Entitic mass]28.2 chUjtlrm51.9-34.0The [facility] HospitalComment on above:Performed By: #### CBC #### [facility] [address] [place] [address] Dr. Demetris Ramos (RBC) [Mass/Vol]34.4 g/iEZnmrav65.9-35.2[facility] on above:Performed By: #### CBC #### [facility] [address] [place] [address] Dr. Demetris Ramos (RBC) [Entitic vol]82.1 dVMynrqq82.0-94.0The [facility] HospitalComment on above:Performed By: #### CBC #### [facility] [address] [place] [address] Dr. Demetris Pierre #0.6 103/ulNormal0.3-0.8[facility] on above:Performed By: #### CBC #### [facility] [address] [place] [address] Dr. Demetris Beardocytes/100 WBC (Bld)5.4 %Normal1.7-12.0[facility] Comment on above:Performed By: #### CBC #### [facility] [address] [place] [address] Dr. Demetris Quispe #6.8 103/ulCritically high1.4-6.5[facility] Comment on above:Performed By: #### CBC #### [facility] [address] [place] [address] Dr. Demetris Schusterutrophils/100 WBC (Bld)61.8 %Xcapio38.0-75.0[facility] ShawComment on above:Performed By: #### CBC #### [facility] [address] [place] [address] Dr. Demetris Lutzlet mean volume (Bld) [Entitic vol]10.9 fLNormal9.5-13.5The [facility] HospitalComment on above:Performed By: #### CBC #### [facility] [address] [place] [address] Dr. Demetris BreauxPLT266 103/ltKpuwdq606-047Zfs [facility] HospitalComment on above: Performed By: #### CBC #### [facility] [address] [place] [address] Dr. Demetris BreauxRBC5.35 106/ulNormal4.70-6.10The [facility] HospitalComment on above:Performed By: #### CBC #### [facility] [address] [place] [address] Dr. Demetris BreauxWBC11.1 103/ulCritically high4.0-11.0[facility] ShawComment on above:Performed By: #### CBC #### [facility] [address] [place] [address] Dr. Demetris Murguia-19 PCR ([facility])on 47-30-7820CTII-CoV-2 (COVID-19) RNA MYRON+probe Ql (Unsp spec)Not detectedNormalNOT DETECTEDThe [facility] Comment on above:Result Comment: When diagnostic testing is negative, the possibility of a false negative should be considered in the context of a patient's recent exposures and the presence of clinical signs and symptoms consistent with SARS-CoV-2. This test is not yet approved or cleared by the [place] FDA. When there are no FDA-approved or cleared tests available, and other criteria are met, FDA can make tests available under an emergency access mechanism called an Emergency Use Authorization (EUA). The EUA for this test is supported by the [place] of Health and Human Service's declaration that circumstances exist to justify the emergency use of in vitro diagnostics for the detection and/or diagnosis of the virus that causes COVID-19. This EUA will remain in effect for the duration of the COVID-19 declaration justifying emergency of IVDs, unless it is terminated or revoked by the FDA (after which the test may no longer be used).Performed By: #### CVDTBH #### [facility] [address] [place] [address] Dr. Demetris Deal URINE PROFILEon 67-60-0441Ivtqaljjo Ql (U)NegativeNormal NEGATIVESelect Medical [facility] ShawComment on above:Performed By: #### ERUR #### [facility] [address] [place] [address] Dr. Demetris BreauxClarity (U)CLEARNormalCLEARSelect Medical [facility] ShawComment on above: Performed By: #### ERUR #### [facility] [address] [place] [address] Dr. Demetris Lin (U)YELLOWNormalYELLOWSelect Medical [facility] ShawComment on above: Performed By: #### ERUR #### [facility] [address] [place] [address] Dr. Demetris Muhammad micrscopic examination will be performed if indicated. NormalSelect Medical [facility], [facility] ShawComment on above:Performed By: #### ERUR #### [facility] [address] [place] [address] Dr. Demetris BreauxGlucose Ql (U)NegativeNormalNEGATIVESelect Medical [facility] ShawComment on above:Performed By: #### ERUR #### [facility] [address] [place] [address] Dr. Demetris BreauxHemoglobin Ql (U)NegativeNormalNEGATIVESelect [facility] Comment on above:Performed By: #### ERUR #### [facility] [address] [address] [address] Demetris Vance Ql (U)NegativeNormalNEGATIVESelect Medical [facility] ShawComment on above:Performed By: #### ERUR #### [facility] [address] [place] [address] Dr. Demetris BreauxLEUKOCYTESNegativeNormalNEGATIVESelect [facility] ShawComment on above:Performed By: #### ERUR #### [facility] [address] [place] [address] Dr. Demetris Esparzatrmalka Ql (U)NegativeNormalNEGATIVESelect Medical [facility] ShawComment on above:Performed By: #### ERUR #### [facility] [address] [place] [address] Dr. Demetris BreauxpH (U)5.5 [pH]Normal5-9The [facility] HospitalComment on above: Performed By: #### ERUR #### [facility] [address] [place] [address] Dr. Demetris BreauxSPEC GRAVITY>=1.924Cjoznnau8.005-<=1.025[facility] Comment on above:Performed By: #### ERUR #### [facility] [address] [place] [address] Dr. Demetris Whitaker PROTEINNegativermalNEGATIVE/ TRACEThe [facility] Comment on above:Performed By: #### ERUR #### [facility] [address] [place] [address] Dr. Demetris Flowers MICRO INDNOT INDICATEDNoPremier Health Upper Valley Medical CenterComment on above:Performed By: #### ERUR #### [facility] [address] [place] [address] Dr. Demetris Oliverosgen Qn (U)0.2 {Navjot'U}/dLNormal0.2 - 1.0[facility] ShawComment on above:Performed By: #### ERUR #### [facility] [address] [place] [address] Dr. Demetris Dupont STREP CULTUREon 09-26-2022S. pyogenes Ag Ql (Unsp spec) Culture Observations: NEGATIVE FOR GROUP A STREPTOCOCCUS.NormalThe [facility] on above: Performed By: #### CMADM, LIPA, CMP #### [facility] [address] [place] [address] Dr. Demetris Dupont AND B AGon 07-31-9780ACQRMLJZGZPDTKettering Health Behavioral Medical CenterComment on above:Result Comment: Negative for Flu A protein angiten. Infection due to Flu A cannot be ruled out. FluA angiten in the sample may be below the detection limit of the test.Performed By: #### CMADM, LIPA, CMP #### [address] [address] Dr[address] Demetris RiderUBNEGFisher-Titus [facility] on above: Result Comment: Negative for Flu B protein antigen. Infection due to Flu B cannot be ruled out. FluB antigen in the sample may be below the detection limit of the test.Performed By: #### CMADM, LIPA, CMP #### [facility] [address] [place] [address] Dr. Demetris Dupont AGNegativeNormalNEGATIVE SEE COMMENTThe [facility] on above:Performed By: #### CMADM, LIPA, CMP #### [facility] [address] [place] [address] Dr. Demetris Rivas AGNegativeNormalNEGATIVE SEE COMMENTThe [facility] on above:Performed By: #### CMADM, LIPA, CMP #### [facility] [address] [place] [address] Dr. Demetris RaymundoASEon 21-34-0529Vgpkme [Catalytic activity/Vol]59.0 U/L Critically low73.0-393.0[facility] on above:Performed By: #### CMADM, LIPA, CMP #### [facility] [address] [place] [address] Dr. Demetris Burch 14(COMP METB)on 22-54-2737Supezuy [Mass/Vol]3.7 g/dLNormal 3.4-5.0The [facility] HospitalComment on above:Performed By: #### CMADM, LIPA, CMP #### [facility] [address] [address] [address] Demetris BreauxAlbumin/Globulin [Mass ratio]1.0 {ratio}NormalThe [facility] HospitalComment on above:Performed By: #### CMADM, LIPA, CMP #### [facility] [address] [address] [address] Demetris Espinosa [Catalytic activity/Vol]98 U/TLeufgo24-055Cuf [facility] HospitalComment on above:Performed By: #### CMADM, LIPA, CMP #### [facility] [address] [address] [address] Demetris Herrera [Catalytic activity/Vol]101 U/LCritically bahh67-28Xic [facility] HospitalComment on above:Performed By: #### CMADM, LIPA, CMP #### [facility] [address] [address] [address] Demetris Villalpando gap [Moles/Vol]13.4 mmol/LNormalThe [facility] Comment on above:Performed By: #### CMADM, LIPA, CMP #### [facility] [address] [address] [address] Demetris BreauxAST [Catalytic activity/Vol]84 U/LCritically gtno10-54Xnz [facility] HospitalComment on above:Performed By: #### CMADM, LIPA, CMP #### [facility] [address] [address] [address] Demetris BreauxBilirubin [Mass/Vol]0.8 mg/dLNormal0.2-1.0[facility] Comment on above:Performed By: #### CMADM, LIPA, CMP #### [facility] [address] [address] [address] Demetris BreauxCalcium [Mass/Vol]9.2 mg/dLNormal8.5-10.1The [facility] Comment on above:Performed By: #### CMADM, LIPA, CMP #### [facility] [address] [address] [address] Demetris BreauxChloride [Moles/Vol]100 mmol/AFzwtfj21-681Jtm [facility] Comment on above:Performed By: #### CMADM, LIPA, CMP #### [facility] [address] [address] [address] Demetris BreauxCO2 [Moles/Vol]26.3 mmol/IWuyyui85.0-32.0[facility] Comment on above:Performed By: #### CMADM, LIPA, CMP #### [facility] [address] [place] [address] Dr. Demetris BreauxCreatinine [Mass/Vol]0.79 mg/dLNormal0.70-1.30The [facility] HospitalComment on above:Performed By: #### CMADM, LIPA, CMP #### [facility] [address] [place] [address] Dr. Demetris GuoGFR-AF MACANESE>60Normal>=60The [facility] HospitalComment on above:Performed By: #### CMADM, LIPA, CMP #### [facility] [address] [place] [address] Dr. Demetris GuoGFR-NON AF MACANESE>60Normal>=60The [facility] HospitalComment on above:Performed By: #### CMADM, LIPA, CMP #### [facility] [address] [place] [address] Dr. Demetris BreauxGlobulin (S) [Mass/Vol]3.8 g/dLNormalThe [facility] HospitalComment on above:Performed By: #### CMADM, LIPA, CMP #### [facility] [address] [place] [address] Dr. Demetris BreauxGlucose [Mass/Vol]138 mg/dLCritically eyrk32-620Kfs [facility] HospitalComment on above:Performed By: #### CMADM, LIPA, CMP #### [facility] [address] [address] [address] Demetris BreauxPotassium [Moles/Vol]3.7 mmol/LNormal3.5-5.1[facility] Comment on above:Performed By: #### CMADM, LIPA, CMP #### [facility] [address] [address] [address] Demetris BreauxProtein [Mass/Vol]7.5 g/dLNormal6.4-8.2[facility] Comment on above:Performed By: #### CMADM, LIPA, CMP #### [facility] [address] [place] [address] Dr. Demetris BreauxSodium [Moles/Vol]136 mmol/EKhsgzj009-505Gay [facility] Comment on above:Performed By: #### CMADM, LIPA, CMP #### [facility] [address] [place] [address] Dr. Demetris BreauxUrea nitrogen [Mass/Vol]12.0 mg/dLNormal7.0-18.0The [facility] HospitalComment on above:Performed By: #### CMADM, LIPA, CMP #### [facility] [address] [place] [address] Dr. Demetris Vee nitrogen/Creatinine [Mass ratio]15.2 mg/mgNormalThe [facility] HospitalComment on above:Performed By: #### CMADM, LIPA, CMP #### [facility] [address] [place] [address] Dr. Demetris BreauxSTREPT SCREENon 07-64-9110AYHAT SCREEN ANegativeNormalNEGATIVEThe [facility] HospitalComment on above:Performed By: #### CMADM, LIPA, CMP #### [facility] [address] [place] [address] Dr. Demetris Ferreira, HIGH SENSITIVITYon 93-90-3509GYURZF2.2 pg/mLNormal 4.0-76.1The [facility] HospitalComment on above:Result Comment: CUT-OFF POINTS HAVE BEEN ESTABLISHED BASED ON THE FOURTH UNIVERSAL DEFINITIONS OF MYOCARDIAL INFARCTION. THE UPPER REFERENCE LIMIT (URL) OF TROPONIN, DEFINED THE 99TH PERCENTILE OF cTnI DISTRIBUTION IN A REFERENCE POPULATION, HAS BEEN CONFIRMED THE DECISION THRESHOLD FOR [place] DIAGNOSIS.Performed By: #### CMADM, LIPA, CMP #### [facility] [address] [place], [place] [address] Dr. Demetris BreauxXR CHEST 1 Von 74-07-6420NF CHEST 1 VEXAMINATION: XR CHEST 1 V HISTORY: CHEST PAIN, UNSPECIFIED COMPARISON: XR chest 01/09/2011 FINDINGS: LUNGS: Underexpanded lungs with mild haziness bilaterally, slightly greater within lung bases. VASCULATURE: No increased pulmonary vasculature. PLEURA: No pneumothorax, effusion, or pleural thickening. CARDIAC: No cardiomegaly or cardiac silhouette abnormality. MEDIASTINUM: No visible mass or adenopathy. BONES: No fracture or visible bone lesion. OTHER: Negative. IMPRESSION: 1. Low lung volume examination with mild bilateral atelectasis. Infectious etiology and pulmonary edema are not completely excluded but felt less likely. Electronically authenticated by: SHEYLA BEAVERS Date: 2022-09-26 13:15NMer[facility] Vital Signs Date TimeVital SignValuePerforming OzngicqyfUrtbxngl12-81-7217 17:35-0400Body ojvyxd510.96 cmOhio[facility]06-[facility]-2024 17:35-0400Body mass index (BMI) [Ratio]42.3 kg/v8LmtdnubdlOhiohealth Grant Medical Center06-19-2024 17:35-0400Body fosgifbqouv05.6 [degF][facility]06-19-2024 17:35-0400Body olsuov278.68 kgOhiohealth Grant Medical Center06-19-2024 17:35-0400Diastolic blood xtjfuval56 mm[Hg][facility] 03-10-2024 17:35-0400Heart rate79 /[facility] 03-10-2024 17:35-0400Respiratory rate18 /[facility] 03-10-2024 17:35-0036XeG2% (BldA) [Mass fraction]98 %[facility]06-19-2024 17:35-0400Systolic blood mvvjnyir751 mm[Hg][facility]03-01-2024 10:27-0500Diastolic blood fqsghhyd84 mm[Hg]Mohamad Mouchli [address] [place], [place] [id number] 10:27-0500Heart rate73 /minMohamad Mouchli [address] [place], [place] [id number] 10:27-0500Mean blood yexvomrs83 mm[Hg]Mohamad Mouchli [address] [place], [place] [id number] 10:27-0500 Respiratory rate16 /minMohamad Mouchli [address] [place], [place] [id number] 10:27-2915RjI6% (BldA) [Mass fraction]96 %Mohamad Mouchli [address] [place], [place] [id number] 10:27-0500 Systolic blood xprvsjdi495 mm[Hg]Mohamad Mouchli [address] [place], [place] [id number] 10:10-0500 Diastolic blood qczpzysn17 mm[Hg]Mohamad Mouchli [address] [place], [place] [id number] 10:10-0500Heart rate73 /minMohamad Mouchli [address] [place], [place] [id number] 10:10-0500Mean blood gmgbsiza91 mm[Hg]Mohamad Mouchli [address] [place], [place] [id number] 10:10-0500 Respiratory rate16 /minMohamad Mouchli [address] [place], [place] [id number] 10:10-9358SmU3% (BldA) [Mass fraction]97 %Mohamad Mouchli [address] [place], [place] [id number] 10:10-0500 Systolic blood qqngdcej202 mm[Hg]Mohamad Mouchli [facility]03-01-2024 10:05-0500 Diastolic blood ksecgbbz94 mm[Hg]Mohamad Mouchli [address] [place], [place] [id number] 10:05-0500Heart rate67 /minMohamad Mouchli [address] [place], [place] [id number] 10:05-0500Mean blood wpnbyeim66 mm[Hg]Mohamad Mouchli [address] [place], [place] [id number] 10:05-0500 Respiratory rate16 /minMohamad Mouchli [address] [place], [place] [id number] 10:05-5468RlQ2% (BldA) [Mass fraction]98 %Mohamad Mouchli [address] [place], [place] [id number] 10:05-0500 Systolic blood npzlkiif228 mm[Hg]Mohamad Mouchli [address] [place], [place] [id number] 09:40-0500Blood Pressure LocationMohamad Mouchli [address] [place], [place] [id number] 09:36-0500Body itfjjvfcmnv80.8 [degF]Mohamad Mouchli [address] [place], [place] [id number] 09:30-0500 Respiratory rate19 /minMohamad Mouchli [address] [place], [place] [id number] 09:25-0500 Respiratory rate19 /minMohamad Mouchli [address] [place], [place] [id number] 09:20-0500 Respiratory rate15 /minMohamad Mouchli [address] [place], [place] 3032403-01-2024 08:20-0500Body tbfjxsyaqwl52.98 [degF]Delgadotobias Singh [facility]02-12-2024 13:40-0500Blood Pressure LocationQi Hernandez [phone]-Jkezg[address] [place], [place] 7861402-12-2024 13:40-0500Body aadxtjquicx26.52 [degF]Qi Hernandez [phone]-Fyzbq[address] [place], [place] 7861402-12-2024 13:40-0500Diastolic blood diuvrftd28 mm[Hg]Qi Hernandez [phone]-Mavdq[address] [place], [place] 7861402-12-2024 13:40-0500Heart rate90 /minQi Hernandez [phone]-Yhoyn[address] [place], [place] 7861402-12-2024 13:40-0500Systolic blood dbvcudgs446 mm[Hg]Qi Hernandez [phone]-Wgmfb[address] [place], [place] 7861401-05-2024 14:00-0500Body svmeju908.96 Lakhwinder Chavira Other [facility] [employer] Other 01-05-2024 14:00-0500Body mass index (BMI) [Ratio] 43.16 kg/e0JcissfMica Chavira Other [facility] [employer] Other 01-05-2024 14:00-0500Body .3 [degF]Mica Chavira Other [employer] Other 01-05-2024 14:00-0500Body uwsbhr001.5 kgMica Chavira Other [facility] [employer] Other 01-05-2024 14:00-0500Diastolic blood qapgdygu84 mm[Hg] Mica Chavira Other nort [employer] Other 01-05-2024 14:00-0500Respiratory rate18 /Tobi Chavira Other [facility] [employer] Other 01-05-2024 14:00-4941XhW8% (BldA) [Mass fraction]96 % Mica Chavira Other [facility] [employer] Other 01-05-2024 14:00-0500Systolic blood mm[Hg] Mica Chavira Other [facility] [employer] Other 04-19-2023 08:43-0400Blood Pressure LocationMaher SALAM [phone]-RueelOhiohealth [facility]04-19-2023 08:43-0400Diastolic blood akkbdprw81 mm[Hg]Villanueva SALAM [phone]-TysnyOhiohealth [facility]04-19-2023 08:43-0400Heart rate78 /minMaher SALAM [phone]-VrrjuOhiohealth [facility] Hospital04-19-2023 08:43-0400Respiratory rate16 /minMaher SALAM [phone]-VkfjdOhiohealth [facility] Hospital04-19-2023 08:43-0400Systolic blood ouvsrrsd828 mm[Hg]Villanueva SALAM [phone]-TnnioMiddletown Hospital [facility] Encounters Encounter DateEncounter TypeCare ProviderFacilityStart: 85-51-6052kcigerrgir CHARLES P HOUSEProMedica Hondo HospitalStart: 06-02-2025 End: 15-88-3568aoblclupvvJCIBSMA P HOUSEFacility:[facility] ClinicStart: 11-04-2024 ambulatoryCHARLES P HOUSEFacility:[facility] ClinicStart: 09-02-2024 End: 50-15-3851yymiczqqkxWUXILHH P HOUSEFacility:[facility] ClinicStart: 08-25-2024 End: 32-46-3761Ikyishfqj department patient visitCHARLES P [facility] HospitalStart: 08-16-2024 End: 40-40-0444qdpnpkmblhAGVOFVN P [facility] HospitalStart: 08-05-2024 End: 37-53-1275etgudxjyuaOJSZATA P HOUSEFacility:[facility] ClinicStart: 03-10-2024 End: 22-76-1053zufxrkvbmcOzlhejpyvSelect Medical [facility] Work Phone: Start: 03-10-2024 End: 29-87-3640Wijabnm encounter procedureNov[facility] [place] Work Phone: Start: 12-25-2023 End: 66-36-9408wbxmrrsyelPldxiyu A. MouchliFacility:[facility] DHStart: 12-25-2023 End: 20-63-3437Vaqhsns encounter procedureBret Singh [phone]-RiamcMiddletown Hospital [facility] Start: 11-21-2023 End: 02-94-9937pqxibplxfvHydvfds A. MouchliFacility:FTMCStart: 11-21-2023 End: 77-51-1099Elvnfck encounter procedureBret Singh [facility] Start: 11-14-2023 End: 12-20-7545lhiijlkxrqOfea A SteinmetzFacility:FTMCStart: 11-14-2023 End: 93-73-9155Gwyekuz encounter Remy Hernandez [facility] Start: 11-03-2023 End: 88-80-9850sknkulegthXyim A SteinmetzFacility:[facility] DHStart: 11-03-2023 End: 27-82-9454Bgloknd encounter procedureBemae Cresencio Mary [phone]-HxbsgMiddletown Hospital [facility] Start: 09-26-2023 End: 80-19-7316vsnxyzcdxgAkmeeo Dymond Other [place] [employer] Other Start: 72-95-9067Uhdjyk outpatient visit 15 minutes iMca [facility] ClydeStart: 01-08-2023 End: 08-12-8817yzhbwubvmiEpaeg SALAMFacility:[facility] DHStart: 01-08-2023 End: 68-14-4143Guw-admission assessmentMaher SALAM [facility] Start: 01-08-2023 End: 43-09-1365Srczuez encounter procedureMaher SALAM [phone]-XjdgkM[facility] Start: 11-09-2022 End: 72-71-9007ooyremcehhJF CHARLES HOUSEFacility:X4Ljonl: 10-24-2022 End: 95-15-2946xofxikixrrII CHARLES HOUSEFacility:C3Halzi: 10-12-2022 End: 19-04-8338umhcrqrhvgNF CHARLES HOUSEFacility:J9Vumbx: 09-26-2022 End: 88-27-1340ykzcnluuamNNVKSC RODRIGUEZ .Facility: Procedures DateProcedureProcedure DetailPerforming ClinicianStart: 46-08-7771Zxrpjvsgkqm Mohregina Singh Start: 64-63-7188UpyikdjgeesczjuceqzdebofdhYxolaro [place] Immunizations Immunization DateImmunizationNotesCare JegnbxflHjccwqvf15-06-5526tfmrsyhji virus vaccine, unspecified formulationMaher SALAM [phone]-AwildMiddletown Hospital Digestive Ydcpus87-07-6465 SARS-CoV-2 (COVID-19) mRNA-1273 vaccineMaher SALAM [phone]-FdrhkMiddletown Hospital Digest[facility] Dwuxwb80-92-7611 SARS-CoV-2 (COVID-19) mRNA-1273 vaccineMaher SALAM [phone]-KdpwyMiddletown Hospital Digest[facility] Okadpv13-26-8231 SARS-CoV-2 (COVID-19) mRNA-1273 vaccineMaher SALAM [phone]-SuymnMiddletown Hospital [facility] Payers DatePayer CategoryPayerPolicy [id number] 2..[id number] 2..[id number] 2..1.938337.3.57[id number] 2..1.773708.3.57[id number] 2..1.573798.3.57[id number] 2..1.217979.3.57[id number] 2..1.548031.3.57[id number] 2..1.419867.3.57[id number] 2.0.1.184314.3.57[id number] 2.16.840.1.505760.3.57[id number] 2.16.840.1.889144.3.57[id number] 2.16.840.1.127541.3.57[id number] 2.16.840.1.007833.3.57[id number] 2.16.840.1.232761.3.57[id number] 2.16.840.1.293910.3.57[id number] 2..840.1.895806.3.57[id number] 2.16.840.1.291387.3.579.2.718 [id number] 1959Medicare [id number] Social History DateTypeDetailFacilityStart: 01-08-2023 End: 17-46-8258Gsicjjv smoking statusNever smoked tobacco (finding)[facility] HealthSex [facility] At [facility] HospitalTobacco smoking statusNeverM[facility] Start: 50-62-4857Pwi Assigned At [facility] Functional Status EqxnWulkqfwftiZvdvysKhucwnuq34-80-5964Ubtxvmyrdb StatusN/[facility]02-12-2024Functional StatusN/[facility] Mqzsyc23-08-6678Lskmuqhfnx StatusN/[facility] Clinical Notes 01-08-2023 to 07-18-2025 Note Date & OeijQjkgRdevbdsf11-62-2327 NoteEntered by HASEEB ZAPATA DO on July 18, 2025 11:40:19 EDT From: HASEEB ZAPATA DO [facility] Sent: 07/18/2025 11:40:19 EDT Subject: Medication Management Submitted: Complete:metFORMIN (metFORMIN 500 mg oral tablet) Signed by HASEEB ZAPATA DO 07/18/2025 11:40:00 EDT Approved with modifications: metFORMIN (metFORMIN HCl 500MG TABS*) TAKE 2 TABLETS BY MOUTH TWICE A DAY Qty: 112 tab(s) Days Supply: 28 Refills: 5 Substitutions [facility] from [facility]: We are preparing the patient's next set of med packs. Due to us filing these packs for a 28 day supply this medication is out of refills. Please send refills. From: [facility] - To: HASEEB ZAPATA DO Sent: July 18, 2025 10:00:08 AM CDT Subject: Medication Management Due: July 19, 2025 12:08:24 AM CDT On Hold Pending Signature Drug: metFORMIN (metFORMIN 500 mg oral tablet), TAKE 2 TABLETS BY MOUTH TWICE A DAY Quantity: 112 tab(s) Days Supply: 28 Refills: 5 Substitutions Allowed Notes from Pharmacy: Maximum Refills Reached Dispensed Drug: metFORMIN (metFORMIN 500 mg oral tablet), TAKE 2 TABLETS BY MOUTH TWICE A DAY Quantity: 112 tab(s) Days Supply: 28 Refills: 0 Substitutions Allowed Notes from Pharmacy: We are preparing the patient?s next set of med packs. Due to us filing these packs for a 28 day supply this medication is out of refills. Please [facility] refills. [facility] HospitalHtznlyok16-19-9207 Note Entered by HASEEB ZAPATA DO on June 20, 2025 16:43:53 EDT From: HASEEB ZAPATA DO To: [facility] [place] Sent: 06/20/2025 16:43:53 EDT Subject: Medication Management Submitted: Complete:fluticasone-salmeterol (Advair Diskus 250 mcg-50 mcg inhalation powder) Signed by HASEEB ZAPATA DO 06/20/2025 16:43:00 EDT Approved with modifications: fluticasone-salmeterol (Advair Diskus 250-50MCG/ACT AEPB) INHALE 1 DOSE BY MOUTH TWICE A DAY *[place] WITH WATER AFTER EACH USE* Qty: 60 EA Days Supply: 30 Refills: 5 Substitutions Allowed Route To Pharmacy - [facility] [place] Note from Pharmacy: Maximum Refills Reached From: [facility] To: HASEEB ZAPATA DO Sent: June 20, 2025 3:25:43 PM CDT Subject: Medication Management Due: June 21, 2025 12:03:03 AM CDT On Hold Pending Signature Drug: fluticasone-salmeterol (Advair Diskus 250 mcg-50 mcg inhalation powder), INHALE 1 DOSE BY MOUTH TWICE A DAY *RINSE MOUTH WITH WATER AFTER EACH USE* Quantity: 60 EA Days Supply: 30 Refills: 5 Substitutions Allowed Notes from Pharmacy: Maximum Refills Reached Dispensed Drug: fluticasone-salmeterol (Advair Diskus 250 mcg-50 mcg inhalation powder), INHALE 1 DOSE BY MOUTH TWICE A DAY *RINSE MOUTH WITH WATER AFTER EACH USE* Quantity: 60 EA Days Supply: 30 Refills: 0 Substitutions Allowed Notes from Pharmacy: Maximum Refills Reached [facility] HospitalFvlwpvlh72-11-7787 Note Entered by HASEEB ZAPATA DO on May 25, 2025 16:44:53 EDT From: HASEEB ZAPATA DO To: [facility] [place] Sent: 05/25/2025 16:44:53 EDT Subject: Medication Management Submitted: Complete:atomoxetine (atomoxetine 60 mg oral capsule) Signed by HASEEB ZAPATA DO 05/25/2025 16:44:00 EDT Submitted: Complete:fexofenadine (Allergy Relief (Fexofenadine HCl) 180 mg oral tablet) Signed by HASEEB ZAPATA DO 05/25/2025 16:44:00 EDT Approved with modifications: atomoxetine (Atomoxetine HCl 60MG CAPS) TAKE 1 CAPSULE BY MOUTH DAILY IN THE EVENING Qty: 28 cap(s) Days Supply: 28 Refills: 5 Substitutions Allowed Route To Pharmacy [facility] Note from Pharmacy: Maximum Refills Reached Approved with modifications: fexofenadine (Allergy Relief 180MG TABS) TAKE 1 TABLET BY MOUTH DAILY Qty: 28 tab(s) Days Supply: 28 Refills: 5 Substitutions Allowed Route To Pharmacy [facility] Note from Pharmacy: Maximum Refills Reached From: [facility] To: HASEEB ZAPATA DO Sent: May 25, 2025 2:53:49 PM CDT Subject: Medication Management Due: May 26, 2025 12:08:26 AM CDT On Hold Pending Signature Drug: atomoxetine (atomoxetine 60 mg oral capsule), TAKE 1 CAPSULE BY MOUTH DAILY IN THE EVENING Quantity: 28 cap(s) Days Supply: 28 Refills: 5 Substitutions Allowed Notes from Pharmacy: Maximum Refills Reached Dispensed Drug: atomoxetine (atomoxetine 60 mg oral capsule), TAKE 1 CAPSULE BY MOUTH DAILY IN THE EVENING Quantity: 28 cap(s) Days Supply: 28 Refills: 0 Substitutions Allowed Notes from Pharmacy: Maximum Refills Reached On Hold Pending Signature Drug: fexofenadine (Allergy Relief (Fexofenadine HCl) 180 mg oral tablet), TAKE 1 TABLET BY MOUTH DAILY Quantity: 28 tab(s) Days Supply: 28 Refills: 5 Substitutions Allowed Notes from Pharmacy: Maximum Refills Reached Dispensed Drug: fexofenadine (Allergy Relief (Fexofenadine HCl) 180 mg oral tablet), TAKE 1 TABLET BY MOUTH DAILY Quantity: 28 tab(s) Days Supply: 28 Refills: 0 Substitutions Allowed Notes from Pharmacy: Maximum Refills Reached [facility] [id number] Note Entered by HASEEB ZAPATA DO on February 28, 2025 07:31:01 EDT From: HASEEB ZAPATA DO To: [facility] Sent: 02/28/2025 07:31:01 EDT Subject: Medication Management Submitted: Complete:pantoprazole (pantoprazole 40 mg oral delayed release tablet) Signed by HASEEB ZAPATA DO 02/28/2025 07:31:00 EDT Approved with modifications: pantoprazole (Pantoprazole Sodium 40MG TBEC) TAKE 1 TABLET BY MOUTH TWICE A DAY Qty: 56 tab(s) Days Supply: 28 Refills: 5 Substitutions Allowed Route To Pharmacy - [facility] Note from Pharmacy: Maximum Refills Reached From: [facility] - To: HASEEB ZAPATA DO Sent: February 25, 2025 1:29:16 PM CDT Subject: Medication Management Due: February 26, 2025 12:05:13 AM CDT On Hold Pending Signature Drug: pantoprazole (pantoprazole 40 mg oral delayed release tablet), TAKE 1 TABLET BY MOUTH TWICE ADAY Quantity: 56 tab(s) Days Supply: 28 Refills: 5 Substitutions Allowed Notes from Pharmacy: Maximum Refills Reached Dispensed Drug: pantoprazole (pantoprazole 40 mg oral delayed release tablet), TAKE 1 TABLET BY MOUTH TWICE A DAY Quantity: 56 tab(s) Days Supply: 28 Refills: 0 Substitutions Allowed Notes from Pharmacy: Maximum Refills Reached [facility] HospitalVctvmysw10-83-3068 Note Entered by HASEEB ZAPATA DO on January 31, 2025 11:40:01 EDT From: HASEEB ZAPATA DO [facility] Sent: 01/31/2025 11:40:01 EDT Subject: Medication Management Submitted: Complete:metFORMIN (metFORMIN 500 mg oral tablet) Signed by HASEEB ZAPATA DO 01/31/2025 11:40:00 EDT Approved with modifications: metFORMIN (metFORMIN HCl 500MG TABS*) TAKE 2 TABLETS BY MOUTH TWICE A DAY Qty: 112 tab(s) Days Supply: 28 Refills: 5 Substitutions [facility] from Pharm[facility]: Maximum Refills Reached From: [facility] To: HASEEB ZAPATA DO Sent: January 31, 2025 9:42:14 AM CDT Subject: Medication Management Due: February 01, 2025 12:05:20 AM CDT On Hold Pending Signature Drug: metFORMIN (metFORMIN 500 mg oral tablet), TAKE 2 TABLETS BY MOUTH TWICE A DAY Quantity: 112 tab(s) Days Supply: 28 Refills: 5 Substitutions Allowed Notes from Pharmacy: Maximum Refills Reached Dispensed Drug: metFORMIN (metFORMIN 500 mg oral tablet), TAKE 2 TABLETS BY MOUTH TWICE A DAY Quantity: 112 tab(s) Days Supply: 28 Refills: 0 Substitutions Allowed Notes from Pharmacy: Maximum Refills Reached [facility] HospitalYbhdsbce56-55-2600 Note Entered by HASEEB ZAPATA DO on January 13, 2025 09:04:55 EDT From: HASEEB ZAPATA DO To: [facility] [place] Sent: 01/13/2025 09:04:55 EDT Subject: Medication Management Submitted: Complete:fluticasone-salmeterol (Advair Diskus 250 mcg-50 mcg inhalation powder) Signed by HASEEB ZAPATA DO 01/13/2025 09:04:00 EDT Approved with modifications: fluticasone-salmeterol (Advair Diskus 250-50MCG/DOSE AEPB) INHALE 1 DOSE BY MOUTH TWICE A DAY *RINSE MOUTH WITH WATER AFTER EACH USE* Qty: 60 EA Days Supply: 30 Refills: 5 Substitutions Allowed Route To Pharmacy - [facility] [place] Note from Pharmacy: Maximum Refills Reached From: [facility] - To: HASEEB ZAPATA DO Sent: January 13, 2025 7:51:42 AM CDT Subject: Medication Management Due: January 14, 2025 12:03:04 AM CDT On Hold Pending Signature Drug: fluticasone-salmeterol (Advair Diskus 250 mcg-50 mcg inhalation powder), INHALE 1 DOSE BY MOUTH TWICE A DAY *RINSE MOUTH WITH WATER AFTER EACH USE* Quantity: 60 EA Days Supply: 30 Refills: 5 Substitutions Allowed Notes from Pharmacy: Maximum Refills Reached Dispensed Drug: fluticasone-salmeterol (Advair Diskus 250 mcg-50 mcg inhalation powder), INHALE 1 DOSE BY MOUTH TWICE A DAY *RINSE MOUTH WITH WATER AFTER EACH USE* Quantity: 60 EA Days Supply: 30 Refills: 0 Substitutions Allowed Notes from Pharmacy: Maximum Refills Reached [facility] HospitalAvpjyjkv80-43-8725 Note Entered by HASEEB ZAPATA DO on December 03, 2024 20:30:02 EDT From: HASEEB ZAPATA DO To: [facility] [place] Sent: 12/03/2024 20:30:02 EDT Subject: Medication Management Submitted: Complete:atomoxetine (atomoxetine 60 mg oral capsule) Signed by HASEEB ZAPATA DO 12/03/2024 20:30:00 EDT Submitted: Complete:fexofenadine (fexofenadine 180 mg oral tablet) Signed by HASEEB ZAPATA DO 12/03/2024 20:30:00 EDT Approved with modifications: fexofenadine (Allergy Relief 180MG TABS) TAKE 1 TABLET BY MOUTH DAILY Qty: 28 tab(s) Days Supply: 28 Refills: 5 Substitutions Allowed Route To [facility] Note from Pharmacy: Maximum Refills Reached Approved with modifications: atomoxetine (Atomoxetine HCl 60MG CAPS) TAKE 1 CAPSULE BY MOUTH DAILY IN THE EVENING Qty: 28 cap(s) Days Supply: 28 Refills: 5 Substitutions Allowed Route To [facility] Note from Pharmacy: Maximum Refills Reached From: [facility] To: HASEEB ZAPATA DO Sent: December 03, 2024 1:00:03 PM CDT Subject: Medication Management Due: December 04, 2024 12:16:14 AM CDT On Hold Pending Signature Drug: fexofenadine (fexofenadine 180 mg oral tablet), TAKE 1 TABLET BY MOUTH DAILY Quantity: 28 tab(s) Days Supply: 28 Refills: 11 Substitutions Allowed Notes from Pharmacy: Maximum Refills Reached Dispensed Drug: fexofenadine (Allergy Relief (Fexofenadine HCl) 180 mg oral tablet), TAKE 1 TABLET BY MOUTH DAILY Quantity: 28 tab(s) Days Supply: 28 Refills: 0 Substitutions Allowed Notes from Pharmacy: Maximum Refills Reached On Hold Pending Signature Drug: atomoxetine (atomoxetine 60 mg oral capsule), TAKE 1 CAPSULE BY MOUTH DAILY IN THE EVENING Quantity: 28 cap(s) Days Supply: 28 Refills: 5 Substitutions Allowed Notes from Pharmacy: Maximum Refills Reached Dispensed Drug: atomoxetine (atomoxetine 60 mg oral capsule), TAKE 1 CAPSULE BY MOUTH DAILY IN THE EVENING Quantity: 28 cap(s) Days Supply: 28 Refills: 0 Substitutions Allowed Notes from Pharmacy: Maximum Refills Reached [facility] [id number] Note Entered by HASEEB ZAPATA DO on September 07, 2024 15:41:18 EST From: HASEEB ZAPATA DO To: [facility] Sent: 09/07/2024 15:41:18 EST Subject: Medication Management Submitted: Complete:pantoprazole (pantoprazole 40 mg oral delayed release tablet) Signed by HASEEB ZAPATA DO 09/07/2024 15:41:00 EST Approved with modifications: pantoprazole (Pantoprazole Sodium 40MG TBEC) TAKE 1 TABLET BY MOUTH TWICE A DAY Qty: 56 tab(s) Days Supply: 28 Refills: 5 Substitutions Allowed Route To Pharmacy - [facility] Note from Pharmacy: Maximum Refills Reached From: [facility] - [id number] To: HASEEB ZAPATA DO Sent: September 07, 2024 2:39:49 PM SENIOR PROJECT COORDINATOR Subject: Medication Management Due: September 08, 2024 12:07:38 AM SENIOR PROJECT COORDINATOR On Hold Pending Signature Drug: pantoprazole (pantoprazole 40 mg oral delayed release tablet), TAKE 1 TABLET BY MOUTH TWICE ADAY Quantity: 56 tab(s) Days Supply: 28 Refills: 5 Substitutions Allowed Notes from Pharmacy: Maximum Refills Reached Dispensed Drug: pantoprazole (pantoprazole 40 mg oral delayed release tablet), TAKE 1 TABLET BY MOUTH TWICE A DAY Quantity: 56 tab(s) Days Supply: 28 Refills: 0 Substitutions Allowed Notes from Pharmacy: Maximum Refills [facility]ached [facility] HospitalNqyjbhlv06-77-8225 Note Entered by HASEEB ZAPATA DO on August 17, 2024 07:10:26 EST From: HASEEB ZAPATA DO [facility] Sent: 08/17/2024 07:10:26 EST Subject: Medication Management Submitted: Complete:metFORMIN (metFORMIN 500 mg oral tablet) Signed by HASEEB ZAPATA DO 08/17/2024 07:10:00 EST Approved with modifications: metFORMIN (metFORMIN HCl 500MG TABS*) TAKE 2 TABLETS BY MOUTH TWICE A DAY Qty: 112 tab(s) Days Supply: 28 Refills: 5 Substitutions [facility] from Pharm[facility]: Maximum Refills Reached From: [facility] To: HASEEB ZAPATA DO Sent: August 16, 2024 10:56:22 AM SENIOR PROJECT COORDINATOR Subject: Medication Management Due: August 17, 2024 12:18:40 AM SENIOR PROJECT COORDINATOR On Hold Pending Signature Drug: metFORMIN (metFORMIN 500 mg oral tablet), TAKE 2 TABLETS BY MOUTH TWICE A DAY Quantity: 112 tab(s) Days Supply: 28 Refills: 1 Substitutions Allowed Notes from Pharmacy: Maximum Refills Reached Dispensed Drug: metFORMIN (metFORMIN 500 mg oral tablet), TAKE 2 TABLETS BY MOUTH TWICE A DAY Quantity: 112 tab(s) Days Supply: 28 Refills: 0 Substitutions Allowed Notes from Pharmacy: Maximum Refills [facility]ached [facility] HospitalTmgjyxmb27-72-3037 Note Entered by HASEEB ZAPATA DO on July 28, 2024 12:37:22 EST From: HASEEB ZAPATA DO To: [facility] [place] Sent: 07/28/2024 12:37:22 EST Subject: Medication Management Submitted: Complete:fluticasone-salmeterol (Advair Diskus 250 mcg-50 mcg inhalation powder) Signed by HASEEB ZAPATA DO 07/28/2024 12:37:00 EST Approved with modifications: fluticasone-salmeterol (Advair Diskus 250-50MCG/DOSE AEPB) INHALE 1 DOSE BY MOUTH TWICE A DAY *RINSE MOUTH WITH WATER AFTER EACH USE* Qty: 60 EA Days Supply: 30 Refills: 5 Substitutions Allowed Route To Pharmacy - [facility] [place] Note from Pharmacy: Maximum Refills Reached From: [facility] - To: HASEEB ZAPATA DO Sent: July 28, 2024 11:28:23 AM SENIOR PROJECT COORDINATOR Subject: Medication Management Due: July 29, 2024 12:27:47 AM SENIOR PROJECT COORDINATOR On Hold Pending Signature Drug: fluticasone-salmeterol (Advair Diskus 250 mcg-50 mcg inhalation powder), INHALE 1 DOSE BY MOUTH TWICE A DAY *RINSE MOUTH WITH WATER AFTER EACH USE* Quantity: 60 EA Days Supply: 30 Refills: 5 Substitutions Allowed Notes from Pharmacy: Maximum Refills Reached Dispensed Drug: fluticasone-salmeterol (Advair Diskus 250 mcg-50 mcg inhalation powder), INHALE 1 DOSE BY MOUTH TWICE A DAY *RINSE MOUTH WITH WATER AFTER EACH USE* Quantity: 60 EA Days Supply: 30 Refills: 0 Substitutions Allowed Notes from Pharmacy: Maximum Refills Reached [facility] HospitalXwbapzpr21-63-5346 Note [id number] Discharge instructions Patient Education 11/21/2023 09:59:11 Colonoscopy, Care After Surgery [place] (CUSTOM) Colonoscopy Care After Surgery Please read the instructions outlined below and refer to this sheet in the next few weeks. These discharge instructions provide you with general information on caring for [facility] Your doctor may also give you specific instructions. While your treatment has been planned according to the most current medical practices available, unavoidable complications occasionally occur. If you have any problems or questions after discharge, please call your doctor. ACTIVITY You may resume your regular activity, but move at a slower pace for the next 24 hours. Take frequent rest periods for the next 24 hours. Walking will help get rid of the air and reduce the bloated feeling in your abdomen (belly). No driving for 24 hours (because of the anesthesia (medicine) used during the test). You may shower. Do not sign any important legal documents or operate any machinery for 24 hours (because of the anesthesia used during the test). NUTRITION Drink plenty of fluids. You may resume your normal diet as instructed by your doctor. Begin with a light meal and progress to your normal diet. Heavy or fried foods are harder to digestand may make you feel nauseated (sick to your stomach). Avoid alcoholic beverages for 24 hours or as instructed. MEDICATIONS You may resume your normal medications unless your doctor tells you otherwise. WHAT YOU CAN EXPECT TODAY Some feelings of bloating in the abdomen. Passage of more gas than usual. Spotting of blood in your stool or on the toilet paper. FOLLOW-UP Your doctor will discuss the results of your test with you. SEEK IMMEDIATE MEDICAL ATTENTION IF: There is more than a spotting of blood in your stool. There is abdominal distention (your abdomen is swollen). There is vomiting. You have a temperature over 101.5 F. There is abdominal pain or discomfort that is severe or gets worse throughout the day. 11/21/2023 09:59:06 Hemorrhoids Hemorrhoids Hemorrhoids are swollen veins in and around the rectum or anus. There are two types of hemorrhoids: Internal hemorrhoids. These occur in the veins that are just inside the rectum. They may poke through to the outside and become irritated and painful. External hemorrhoids. These occur in the veins that are outside the anus and can be felt as a painful swelling or hard lump near the anus. Most hemorrhoids do not cause serious problems, and they can be managed with home treatments such as diet and lifestyle changes. If home treatments do not help the symptoms, procedures can be done toshrink or remove the hemorrhoids. What are the causes? This condition is caused by increased pressure in the anal area. This pressure may result from various things, including: Constipation. Straining to have a bowel movement. Diarrhea. . Obesity. Sitting for long periods of time. Heavy lifting or other activity that causes you to strain. Anal sex. Riding a bike for a long period of time. What are the signs or symptoms? Symptoms of this condition include: Pain. Anal itching or irritation. Rectal bleeding. Leakage of stool (feces). Anal swelling. One or more lumps around the anus. How is this diagnosed? This condition can often be diagnosed through a visual exam. Other exams or tests may also be done,such as: An exam that involves feeling the rectal area with a gloved hand (digital rectal exam). An exam of the anal canal that is done using a small tube (anoscope). A blood test, if you have lost a significant amount of blood. A test to look inside the colon using a flexible tube with a camera on the end (sigmoidoscopy or colonoscopy). How is this treated? This condition can usually be treated at home. However, various procedures may be done if dietary changes, lifestyle changes, and other home treatments do not help your symptoms. These procedures canhelp make the hemorrhoids smaller or remove them completely. Some of these procedures involve surgery, and others do not. Common procedures include: Rubber band ligation. Rubber bands are placed at the base of the hemorrhoids to cut off their bloodsupply. Sclerotherapy. Medicine is injected into the hemorrhoids to shrink them. Infrared coagulation. A type of light energy is used to get rid of the hemorrhoids. Hemorrhoidectomy surgery. The hemorrhoids are surgically removed, and the veins that supply them are tied off. Stapled hemorrhoidopexy surgery. The surgeon jodie the base of the hemorrhoid to the rectal wall. Follow these instructions at home: Eating and drinking Eat foods that have a lot of fiber in them, such as whole grains, beans, nuts, fruits, and vegetables. Ask your health care provider about taking products that have added fiber (fiber supplements). Reduce the amount of fat in your diet. You can do this by eating low-fat dairy products, eating less red meat, and avoiding processed foods. Drink enough fluid to keep your urine pale yellow. Managing pain and swelling Take warm sitz baths for 20 minutes, 3 4 times a day to ease pain and discomfort. You may do this in a bathtub or using a portable sitz bath that fits over the toilet. If directed, apply ice to the affected area. Using ice packs between sitz baths may be helpful. ?Put ice in a plastic bag. ?Place a towel between your skin and the bag. ?Leave the ice on for 20 minutes, 2 3 times a day. General instructions Take jebw-obv-fnpigbc and prescription medicines only as told by your health care provider. Use medicated creams or suppositories as told. Get regular exercise. Ask your health care provider how much and what kind of exercise is best for you. In general, you should do moderate exercise for at least 30 minutes on most days of the week (150 minutes each week). This can include activities such as walking, biking, or yoga. Go to the bathroom when you have the urge to have a bowel movement. Do not wait. Avoid straining to have bowel movements. Keep the anal area dry and clean. Use wet toilet paper or moist towelettes after a bowel movement. Do not sit on the toilet for long periods of time. This increases blood pooling and pain. Keep all follow-up visits as told by your health care provider. This is important. Contact a health care provider if you have: Increasing pain and swelling that are not controlled by treatment or medicine. Difficulty having a bowel movement, or you are unable to have a bowel movement. Pain or inflammation outside the area of the hemorrhoids. Get help right away if you have: Uncontrolled bleeding from your rectum. Summary Hemorrhoids are swollen veins in and around the rectum or anus. Most hemorrhoids can be managed with home treatments such as diet and lifestyle changes. Taking warm sitz baths can help ease pain and discomfort. In severe cases, procedures or surgery can be done to shrink or remove the hemorrhoids. This information is not intended to replace advice given to you by your health care provider. Make sure you discuss any questions you have with your health care provider. Document Revised: 03/20/2022 Document Reviewed: 03/20/2022 Elsevier Patient Education 2022 [email or web address]. Follow Up Care 11/03/2023 15:16:02 With:Francisco RO, Bret Garrido [facility], [facility] Address: [address], [address] [place] [phone] When: Unknown Comments:Office will call Date and Time of Follow-up Appt. [facility]02-12-2024 Hospital Discharge instructions Patient Education 11/03/2023 13:41:29 Colonoscopy, Adult Colonoscopy, Adult A colonoscopy is a procedure to look at the entire large intestine. This procedure is done using a long, thin, flexible tube that has a camera on the end. You may have a colonoscopy: As a part of normal colorectal screening. If you have certain symptoms, such as: ?A low number of red blood cells in your blood (anemia). ?Diarrhea that does not go away. ?Pain in your abdomen. ?Blood in your stool. A colonoscopy can help screen for and diagnose medical problems, including: An abnormal growth of cells or tissue (tumor). Abnormal growths within the lining of your intestine (polyps). Inflammation. Areas of bleeding. Tell your health care provider about: Any allergies you have. All medicines you are taking, including vitamins, herbs, eye drops, creams, and lajo-zsx-hzwlasv medicines. Any problems you or family members have had with anesthetic medicines. Any bleeding problems you have. Any surgeries you have had. Any medical conditions you have. Any problems you have had with having bowel movements. Whether you are or may be . What are the risks? Generally, this is a safe procedure. However, problems may occur, including: Bleeding. Damage to your intestine. Allergic reactions to medicines given during the procedure. Infection. This is rare. What happens before the procedure? Eating and drinking restrictions Follow instructions from your health care provider about eating or drinking restrictions, which mayinclude: A few days before the procedure: ?Follow a low-fiber diet. ?Avoid nuts, seeds, dried fruit, raw fruits, and vegetables. 1 3 days before the procedure: ?Eat only gelatin dessert or ice pops. ?Drink only clear liquids, such as water, clear juice, clear broth or bouillon, black coffee or tea, or clear soft drinks or sports drinks. ?Avoid liquids that contain red or purple dye. The day of the procedure: ?Do not eat solid foods. You may continue to drink clear liquids until up to 2 hours before the procedure. ?Do not eat or drink anything starting 2 hours before the procedure, or within the time period thatyour health care provider recommends. Bowel prep If you were prescribed a bowel prep to take by mouth (orally) to clean out your colon: Take it as told by your health care provider. Starting the day before your procedure, you will needto drink a large amount of liquid medicine. The liquid will cause you to have many bowel movements of loose stool until your stool becomes almost clear or light green. If your skin or the opening between the buttocks (anus) gets irritated from diarrhea, you may relieve the irritation using: ?Wipes with medicine in them, such as adult wet wipes with aloe and vitamin E. ?A product to soothe skin, such as petroleum jelly. If you vomit while drinking the bowel prep: ?Take a break for up to 60 minutes. ?Begin the bowel prep again. ?Call your health care provider if you keep vomiting or you cannot take the bowel prep without vomiting. To clean out your colon, you may also be given: ?Laxative medicines. These help you have a bowel movement. ?Instructions for enema use. An enema is liquid medicine injected into your rectum. Medicines Ask your health care provider about: Changing or stopping your regular medicines or supplements. This is especially important if you aretaking iron supplements, diabetes medicines, or blood thinners. Taking medicines such as aspirin and ibuprofen. These medicines can thin your blood. Do not take these medicines unless your health care provider tells you to take them. Taking kwby-zju-atxxnwr medicines, vitamins, herbs, and supplements. General instructions Ask your health care provider what steps will be taken to help prevent infection. These may includewashing skin with a germ-killing soap. If you will be going home right after the procedure, plan to have a responsible adult: ?Take you home from the hospital or clinic. You will not be allowed to drive. ? Care for you for the time you are told. What happens during the procedure? An IV will be inserted into one of your veins. You will be given a medicine to make you fall asleep (general anesthetic). You will lie on your side with your knees bent. A lubricant will be put on the tube. Then the tube will be: ?Inserted into your anus. ?Gently eased through all parts of your large intestine. Air will be sent into your colon to keep it open. This may cause some pressure or cramping. Images will be taken with the camera and will appear on a screen. A small tissue sample may be removed to be looked at under a microscope (biopsy). The tissue may besent to a lab for testing if any signs of problems are found. If small polyps are found, they may be removed and checked for cancer cells. When the procedure is finished, the tube will be removed. The procedure may vary among health care providers and hospitals. What happens after the procedure? Your blood pressure, heart rate, breathing rate, and blood oxygen level will be monitored until youleave the hospital or clinic. You may have a small amount of blood in your stool. You may pass gas and have mild cramping or bloating in your abdomen. This is caused by the air thatwas used to open your colon during the exam. If you were given a sedative during the procedure, it can affect you for several hours. Do not drive or operate machinery until your health care provider says that it is safe. It is up to you to get the results of your procedure. Ask your health care provider, or the department that is doing the procedure, when your results will be ready. Summary A colonoscopy is a procedure to look at the entire large intestine. Follow instructions from your health care provider about eating and drinking before the procedure. If you were prescribed an oral bowel prep to clean out your colon, take it as told by your health care provider. During the colonoscopy, a flexible tube with a camera on its end is inserted into the anus and thenpassed into all parts of the large intestine. This information is not intended to replace advice given to you by your health care provider. Make sure you discuss any questions you have with your health care provider. Document Revised: 09/02/2022 Document Reviewed: 05/01/2022 [employer] Patient Education 2022 [employer] Follow Up Care 10/24/2023 15:12:44 With:Qi Hernandez CNP Address: When:1 to 2 weeks Comments:Following EGD/Colonoscopy. [facility] 02-12-2024 NoteRadiology Colonoscopy, Adult A colonoscopy is a procedure to look at the entire large intestine. This procedure is done using a long, thin, flexible tube that has a camera on the end. You may have a colonoscopy: ? As a part of normal colorectal screening. ? If you have certain symptoms, such as: ? A low number of red blood cells in your blood (anemia). ? Diarrhea that does not go away. ? Pain in your abdomen. ? Blood in your stool. A colonoscopy can help screen for and diagnose medical problems, including: ? An abnormal growth of cells or tissue (tumor). ? Abnormal growths within the lining of your intestine (polyps). ? Inflammation. ? Areas of bleeding. Tell your health care provider about: ? Any allergies you have. ? All medicines you are taking, including vitamins, herbs, eye drops, creams, and xwfx-fll-ayifjey medicines. ? Any problems you or family members have had with anesthetic medicines. ? Any bleeding problems you have. ? Any surgeries you have had. ? Any medical conditions you have. ? Any problems you have had with having bowel movements. ? Whether you are or may be . What are the risks? Generally, this is a safe procedure. However, problems may occur, including: ? Bleeding. ? Damage to your intestine. ? Allergic reactions to medicines given during the procedure. ? Infection. This is rare. What happens before the procedure? Eating and drinking restrictions Follow instructions from your health care provider about eating or drinking restrictions, which mayinclude: ? A few days before the procedure: ? Follow a low-fiber diet. ? Avoid nuts, seeds, dried fruit, raw fruits, and vegetables. ? 1?3 days before the procedure: ? Eat only gelatin dessert or ice pops. ? Drink only clear liquids, such as water, clear juice, clear broth or bouillon, black coffee or tea, or clear soft drinks or sports drinks. ? Avoid liquids that contain red or purple dye. ? The day of the procedure: ? Do not eat solid foods. You may continue to drink clear liquids until up to 2 hours before the procedure. ? Do not eat or drink anything starting 2 hours before the procedure, or within the time period that your health care provider recommends. Bowel prep If you were prescribed a bowel prep to take by mouth (orally) to clean out your colon: ? Take it as told by your health care provider. Starting the day before your procedure, you will need to drink a large amount of liquid medicine. The liquid will cause you to have many bowel movements of loose stool until your stool becomes almost clear or light green. ? If your skin or the opening between the buttocks (anus) gets irritated from diarrhea, you may relieve the irritation using: ? Wipes with medicine in them, such as adult wet wipes with aloe and vitamin E. ? A product to soothe skin, such as petroleum jelly. ? If you vomit while drinking the bowel prep: ? Take a break for up to 60 minutes. ? Begin the bowel prep again. ? Call your health care provider if you keep vomiting or you cannot take the bowel prep without vomiting. ? To clean out your colon, you may also be given: ? Laxative medicines. These help you have a bowel movement. ? Instructions for enema use. An enema is liquid medicine injected into your rectum. Medicines Ask your health care provider about: ? Changing or stopping your regular medicines or supplements. This is especially important if you are taking iron supplements, diabetes medicines, or blood thinners. ? Taking medicines such as aspirin and ibuprofen. These medicines can thin your blood. Do not take these medicines unless your health care provider tells you to take them. ? Taking gflw-xsw-audtzgk medicines, vitamins, herbs, and supplements. General instructions ? Ask your health care provider what steps will be taken to help prevent infection. These may include washing skin with a germ-killing soap. ? If you will be going home right after the procedure, plan to have a responsible adult: ? Take you home from the hospital or clinic. You will not be allowed to drive. ? Care for you for the time you are told. What happens during the procedure? ? An IV will be inserted into one of your veins. ? You will be given a medicine to make you fall asleep (general anesthetic). ? You will lie on your side with your knees bent. ? A lubricant will be put on the tube. Then the tube will be: ? Inserted into your anus. ? Gently eased through all parts of your large intestine. ? Air will be sent into your colon to keep it open. This may cause some pressure or cramping. ? Images will be taken with the camera and will appear on a screen. ? A small tissue sample may be removed to be looked at under a microscope (biopsy). The tissue may be sent to a lab for testing if any signs of problems are found. ? If small polyps are found, they may be removed and checked for cancer cells. (more content not included)...[facility]01-05-2024 Evaluation note* Encounter Date Diagnosis Assessment Notes Treatment Notes Treatment Clinical Notes Sep, Nasal congestion (ICD-10 - R09.8 1) Sep,4COVID-19 (ICD-10 - U07.1)Discharge Instructions for COVID-19 (Suspected or Confirmed ) material was printed Drink plenty fluids, get plenty of rest. Take Tylenol or Motrin as needed for aches pains or fevers. Continue home medications as prescribed. You must quarantine for 5 days after the onset of your symptoms of COVID. Follow-up with your family physician if no improvement in 2 to 3 days [employer] Other 04-19-2023 Evaluation + Plan note Future Scheduled Tests Laboratory* Pancreatic Elastase, Fecal 01/08/23 * Calprotectin, Fecal 01/08/23 * Fecal WBC Lactoferrin 01/08/23 * Giardia lamblia, Direct Detection EIA 01/08/23 * IgA, Quant. 01/08/23 * O & P Exam, Routine 01/08/23 * t-Transglutaminase IgA [facility] Appointment Date:03/17/2023 10:40:00 AM Scheduled Provider: Location:[facility] Appointment Type:Surgery FT Future Scheduled Tests Laboratory* Pancreatic Elastase, Fecal 01/08/23 * Calprotectin, Fecal 01/08/23 * Fecal WBC Lactoferrin 01/08/23 * Giardia lamblia, Direct Detection EIA 01/08/23 * IgA, Quant. 01/08/23 * O & P Exam, Routine 01/08/23 * t-Transglutaminase IgA 01/08/23 [facility] Evaluation + Plan note Future Appointments Appointment Date:11/21/2023 11:15:00 AM Scheduled Provider: Location:[facility] Appointment Type:Surgery FT Future Scheduled Tests Laboratory* Pancreatic Elastase, Fecal 01/08/23 * Calprotectin, Fecal 01/08/23 * Fecal WBC Lactoferrin 01/08/23 * Giardia lamblia, Direct Detection EIA 01/08/23 * IgA, Quant. 01/08/23 * O & P Exam, Routine 01/08/23 * t-Transglutaminase IgA 01/08/23 * CBC w/ Auto Diff 11/03/23 [facility] Evaluation + Plan note Future Appointments Appointment Date:11/21/2023 11:15:00 AM Scheduled Provider: Location:[facility] Appointment Type:Surgery FT Future Scheduled Tests Laboratory* Pancreatic Elastase, Fecal 01/08/23 * Calprotectin, Fecal 01/08/23 * Fecal WBC Lactoferrin 01/08/23 * Giardia lamblia, Direct Detection EIA 01/08/23 * IgA, Quant. 01/08/23 * O & P Exam, Routine 01/08/23 * t-Transglutaminase IgA 01/08/23 [facility] Diagnosis Onset Date Resolution Status Heat rash acute [facility] Work Phone: Hisl[facility] general Narrative - Reported* Type Description Date Medical History ASTHMA Medical HistoryADDHospitalization HistoryGRAND MAL SEIZURES X 2 [employer] Other Hospital course Narrative No data available for this section [facility] Hospital Discharge instructions No data available for this section [facility] Progress note No data available for this section [facility] Summary Purpose Family History No Family History Records Found Relationship Condition Age at Onset Recorded Date/T antolin Not Specified Unknown Advance Directives No Advanced Directives Records Found Advance Directive Response Recorded Date/ Time Advance Directives No March 10 5:27pm Chief Complaint and Reason for Visit Chief Complaint blisters on back Reason for Visit Heat rash Additional Source Comments (unrecognized sect ion and content) No Status Records FoundNo Status Records FoundNo Status Records FoundNo Status Records Found INFORMATION SOURCE (unrecogn ized section and content) DATE CREATED AUTHOR 12/13/2022 [facility] DATE CREATED AUTHOR AUTHOR'S ORGANIZ ATION 12/26/2023 [facility] DATE CREATED AUTHOR AUTHOR'S ORGANIZ ATION 06/06/2025 [facility] DATE CREATED AUTHOR AUTHOR'S ORGANIZ ATION 07/19/2025 [facility] Patient Care team informatio n (unrecognized section and content) Team Status: Active Member Role Status Dates PHYSICIAN NO FAMILY Primary Care Provider Active Team Status: Inactive Member Role Status Dates Alondra Luna APRN Attending Provider Active S tart: March 10, 2024 End: March 10HYSICIAN NO FAMILYPrimary Care ProviderActiveStart: March 10, 2024 End: March 10, 2024 REASON FOR VISIT (unrecogniz ed section and content) COUGH, CONGESTION, NEEDS COV ID TEST Goals (unrecognized section and content) Goals may be documented in a n alternate section FOR RECORDS PERTAINING TO PATIENTS WHO ARE OR HAVE BEEN ENROLLED IN A CHEMICAL DEPENDENCY/SUBSTANCEABUSE PROGRAM, SOME INFORMATION MAY BE OMITTED. This clinical summary was aggregated from multiple sources. Caution should be exercised in using it in the provision of clinical care. This summary normalizes information from multiple sources, and as a consequence, information in this document may materially change the coding, format and clinical context of patient data. In addition, data may be omitted in some cases. CLINICAL DECISIONS SHOULD BE BASED ON THE PRIMARY CLINICAL RECORDS. [facility] [employer] provides no warranty or guarantee of the accuracy or completeness of information in this document.
--- OUTSIDE RECORDS SUMMARY | 2025-08-12 11:51 | XMS_ITS | Clinical Summary ---
Author Organization [facility] tem Address [id number] [place] [address] Care Team Providers Care Advertising Copy Writer Name Role Phone Haseeb Gagnon DO Primary Care Provider [phone] Allergies No known active allergies Medications MedicationSigDispense QuantityRefillsLast FilledStart DateEnd DateStatus fluticasone propion-salmeteroL (ADVAIR) 250-50 mcg/dose DISKUS Inhale 1 puff in the morning and 1 puff before bedtime.Active metFORMIN (GLUCOPHAGE) 500 mg tablet Take 2 tablets (1,000 mg total) by mouth in the morning and 2 tablets (1,000 mg total) before bedtime.Active fexofenadine (SUDHAKAR) 180 mg tablet Take 1 tablet (180 mg total) by mouth in the morning.Active atomoxetine (STRATTERA) 60 mg capsule Take 1 capsule (60 mg total) by mouth in the morning.Active pantoprazole (PROTONIX) 40 mg EC tablet Take 1 tablet (40 mg total) by mouth in the morning.Active Active Problems ProblemNoted DateDiagnosed DateAtypical chest pain10/27/2022 Encounters DateTypeDepartmentCare AramZboxvnouhvi07/13/2025Travelfrom Last 3 Months Immunizations ImmunizationAdministration DatesNext TfyMtig62/04/2024 Social History Tobacco UseTypesPacks/DayYears UsedDateSmoking Tobacco: NeverSmokeless Tobacco: Never Tobacco Cessation:Counseling Given: Not Answered Alcohol UseStandard Drinks/WeekCommentsNot Currently0 (1 standard drink = 0.6 oz pure alcohol)ChildcareAnswerDate LveirrenKcciyfknyDbjhoyw98/12/2019Employment AnswerDate YhlwzrxoOqsquyfsiyUkcxzpi17/12/2019Hunger ScreeningAnswerDate RecordedWithin the past 12 months we worried whether our food would run out before we got money to buy more.Never True08/25/2024Within the past 12 months the food we bought just didn't last and we didn't have money to get more.Never True08/25/2024urpose - LifeAnswerDate RecordedPurpose and direction in life Kywqxnn9111/02/2020ex and Gender InformationValueDate RecordedSex Assigned at BirthNot on fileLegal OurVtdd3504/27/2015 11:31 AM EDTGender IdentityNot on file Sexual OrientationNot on file Last Filed Vital Signs Vital SignReadingTime TakenCommentsBlood Essissxi022/8708/25/2024 10:01 PM EST Jmivn335108/25/2024 10:01 PM MNSHvlcudyocvt51.7 ??C (98 ??F)08/25/2024 8:57 PM EST Respiratory Qitm409810/26/2023 10:01 PM ESTOxygen Vgzqmuzjlc93%08/25/2024 10:01 PM ESTInhaled Oxygen Concentration--Rryqqb552.4 kg (325 lb)08/25/2024 8:57 PM EST Sbjsxi370 cm (6' 2 )08/25/2024 8:57 PM ESTBody Mass Index41.7308/25/2024 8:57 PM EST Plan of Treatment Health MaintenanceDue DateLast DoneCommentsDiabetic Ophthalmology Exam1981 Statin Use: Buybrbrl1981Depression Xfaewprtd19/05/1993Adult BMI Follow Up Plan1999Diabetic Foot Exam1999COVID-19 Vaccine ( season) , 10/30/2020, 10/02/2020Influenza Dcztity1005/23/2025 07/11/2022dult BMI Ilaabjjma97Tobacco Bbgumjktm55/04/2025 08/25/2024TaP,Tdap and Td Vaccines (2 - Td or Tdap) Medical Devices Not on file Procedures Procedure NamePriorityDate/TimeAssociated DiagnosisCommentsHEMOGLOBIN J4BYdbkjmo 06/04/2025 8:44 AM EDT Obstructive sleep apnea (adult) (pediatric) Developmental disorder of scholastic skills, unspecified Unspecified asthma, uncomplicated Other specified behavioral and emotional disorders with onset usually occurring in childhood and adolescence Type 2 diabetes mellitus without complications ([facility]) CICGIKEJXAPdahdzy16/13/2025 8:44 AM EDT Obstructive sleep apnea (adult) (pediatric) Developmental disorder of scholastic skills, unspecified Unspecified asthma, uncomplicated Other specified behavioral and emotional disorders with onset usually occurring in childhood and adolescence Type 2 diabetes mellitus without complications ([facility]-HCC) LIPID VJSNUUFGtzmvzm38/13/2025 8:44 AM EDT Obstructive sleep apnea (adult) (pediatric) Developmental disorder of scholastic skills, unspecified Unspecified asthma, uncomplicated Other specified behavioral and emotional disorders with onset usually occurring in childhood and adolescence Type 2 diabetes mellitus without complications (CMS-HCC) COMPREHENSIVE METABOLIC NKOECWphanxf71/13/2025 8:44 AM EDT Obstructive sleep apnea (adult) (pediatric) Developmental disorder of scholastic skills, unspecified Unspecified asthma, uncomplicated Other specified behavioral and emotional disorders with onset usually occurring in childhood and adolescence Type 2 diabetes mellitus without complications (CMS-HCC) CBC WITH AUTO DCMRITJXOZDGJtugqbb05/13/2025 8:44 AM EDT Obstructive sleep apnea (adult) (pediatric) Developmental disorder of scholastic skills, unspecified Unspecified asthma, uncomplicated Other specified behavioral and emotional disorders with onset usually occurring in childhood and adolescence Type 2 diabetes mellitus without complications ([facility]) from Last 3 Months Results * CBC auto differential (06/04/2025 8:44 AM EDT)ComponentValueRef RangeTest MethodAnalysis TimePerformed AtPathologist SignatureWBC7.84 - 11 x10E9/L 06/04/2025 3:23 PM [facility] LABORATORYRBC Count5.344.1 - 5.7 X10E12/L06/04/2025 3:23 PM [facility] Eaquyyotyj00.313 - 17 g/dL06/04/2025 3:23 PM [facility] WOTJQFHLNLFnbashafzf30.639 - 50 %06/04/2025 3:23 PM [facility] GISNBZWMANHRS0827 - 100 fL06/04/2025 3:23 PM [facility] EJXFVWMDJJURE17.627 - 34 pg06/04/2025 3:23 PM [facility] BXNQODOWTGZYKE86.532 - 36 g/dL06/04/2025 3:23 PM [facility] SAQAMNRPZRORA97.811.5 - 15 %06/04/2025 3:23 PM [facility] LABORATORYPlatelet Lfixk785201 - 450 X10E9/L06/04/2025 3:23 PM [facility] WNCLPRIWJEHAV24.27 - 12 fL06/04/2025 3:23 PM [facility] LABORATORYNeutrophils %55.5%06/04/2025 3:23 PM [facility] LABORATORYLymphocytes %34.4%06/04/2025 3:23 PM [facility] LABORATORYMonocytes %5.7%06/04/2025 3:23 PM [facility]ORYEosinophils %3.2%06/04/2025 3:23 PM [facility] LABORATORYBasophils %1.2%06/04/2025 3:23 PM [facility] LABORATORYNeutrophils Absolute (A)4.31.5 - 6.6 10*3/uL 06/04/2025 3:23 PM [facility] LABORATORYLymphocytes Absolute 2.71.0 - 3.5 10*3/uL06/04/2025 3:23 PM [facility] Monocytes Absolute0.40.0 - 0.9 10*3/uL06/04/2025 3:23 PM [facility]ATORYEosinophils Absolute0.20.0 - 0.4 10*3/uL06/04/2025 3:23 PM [facility] LABORATORYBasophils Absolute0.10.0 - 0.2 10*3/uL 06/04/2025 3:23 PM [facility] LABORATORYDifferential Type AUTOMATED BRPYDFGOACGO97/13/2025 3:23 PM [facility] LABORATORYSpecimen (Source)Anatomical Location / LateralityCollection Method / VolumeCollection TimeReceived TimeBloodVenous blood / UnknownVenipuncture / Cnnnfyo5406/04/2025 8:44 AM EDT06/04/2025 8:44 AM EDT Narrative Authorizing ProviderResult TypeResult StatusCharles P House DOLAB BLOOD ORDERABLESFinal ResultPerforming OrganizationAddressCity/State/ZIP CodePhone Number [facility] [address] [place] [phone], * Urinalysis (06/04/2025 8:44 AM EDT)ComponentValueRef RangeTest MethodAnalysis TimePerformed AtPathologist QtafridzrVFRNRJwaojuBqibln37/13/2025 3:42 PM EDT [facility] PXGMBKFGSADFLPSWOIMJtjhhBygdd71/13/2025 3:42 PM EDT [facility] LABORATORYSPECIFIC GRAVITY1.0261.003 - 1.035 06/04/2025 3:42 PM [facility] LABORATORYNITRITENegative Wwewggod79/13/2025 3:42 PM [facility] LABORATORYPH,URINE6.5 5.0 - 8.509 3:42 PM [facility] LABORATORYLEUKOCYTE REUTIECMOfqybnuuNqsskqjq06/13/2025 3:42 PM [facility] XRULCZOZMSFWPNWPJMuhbcxdqVrhvctil75/13/2025 3:42 PM [facility] LABORATORYKETONES (URINE)HmkpfyseWtpopheq73/13/2025 3:42 PM [facility] LABORATORYUROBILINOGEN<1.1 eu/dL<1.1 eu/dL06/04/2025 3:42 PM [facility] LABORATORYBILIRUBIN (URINE)NegativeNegative 06/04/2025 3:42 PM [facility] LABORATORYBLOOD/HGBNegative Yxuecycy11/13/2025 3:42 PM [facility] LABORATORYGLUCOSE (URINE)XfuaylatUiohclvh00/13/2025 3:42 PM [facility] LABORATORYSpecimen (Source)Anatomical Location / LateralityCollection Method / VolumeCollection TimeReceived TimeUrineUrine / UnknownCollection / Unknown 06/04/2025 8:44 AM EDT06/04/2025 8:44 AM EDT Narrative [facility] - 06/04/2025 3:42 PM EDT Urine received without preservative. Delays in transport may affect results. Interpret with caution. A clinical correlation is recommended. Authorizing ProviderResult TypeResult StatusCharles P Kalin DOURINE ORDERABLES Final ResultPerforming OrganizationAddressCity/State/ZIP CodePhone Number [facility] [address] [place] [address], * (ABNORMAL) Hemoglobin A1c (06/04/2025 8:44 AM EDT)ComponentValueRef RangeTest MethodAnalysis TimePerformed AtPathologist SignatureHEMOGLOBIN A1C5.9(H)4.4 - 5.6 %06/04/2025 3:41 PM [facility] LABORATORYComment: ?ADA Guidelines ?Result ?HgbA1c ? Normal : ? less than 5.7 % ? Prediabetes : ?5.7 % ??to 6.4 % Diabetes : > 6.4 % ?Use with caution in patients with abnormal hemoglobin variants as ??the half-life of red blood cells and in vivo glycation rates are ??affected. EST. AVERAGE BMDWKWC291hz/dL06/04/2025 3:41 PM [facility] LABORATORYSpecimen (Source)Anatomical Location / LateralityCollection Method / VolumeCollection TimeReceived TimeBloodVenous blood / UnknownVenipuncture / Vmpqwtm0206/04/2025 8:44 AM EDT06/04/2025 8:44 AM EDT Narrative Authorizing ProviderResult TypeResult StatusCharles P House DOLAB BLOOD ORDERABLESFinal ResultPerforming OrganizationAddressCity/State/ZIP CodePhone Number [facility] [address] [place] [address], * (ABNORMAL) Lipid profile (06/04/2025 8:44 AM EDT)ComponentValueRef RangeTest MethodAnalysis TimePerformed AtPathologist JmghxksusHMHAKCNDTNZ127600 - 200 mg/dL06/04/2025 3:31 PM [facility] DRCBUKCMEUKOJWZICWOGEI395 27 - 150 mg/dL06/04/2025 3:31 PM [facility] LABORATORYHDL JVDNZEDHKNC58(L)>39 mg/dL06/04/2025 3:31 PM [facility] LABORATORYComment: HDL <40 mg/dL - High Risk HDL > or = 40mg/dL- Desirable HDL >60 mg/dL - Negative Risk LDL (CALC)105<130 mg/dL06/04/2025 3:31 PM [facility] Comment: LDL <100 mg/dL - Desirable LDL >160 mg/dL - High Risk CHOLESTEROL:HDL4.41.0 - 5.009 3:31 PM [facility] LABORATORYVERY LOW PDQVCCSALSB147 - 30 mg/dL06/04/2025 3:31 PM [facility] LABORATORYSpecimen (Source)Anatomical Location / Laterality Collection Method / VolumeCollection TimeReceived TimeBloodVenous blood / UnknownVenipuncture / Duockvh1606/04/2025 8:44 AM EDT06/04/2025 8:44 AM EDT Narrative Authorizing ProviderResult TypeResult StatusCharles P House DOLAB BLOOD ORDERABLESFinal ResultPerforming OrganizationAddressCity/State/ZIP CodePhone Number [facility] [address] [place] [address], * (ABNORMAL) Comprehensive metabolic panel (06/04/2025 8:44 AM EDT)Component ValueRef RangeTest MethodAnalysis TimePerformed AtPathologist SignatureSODIUM 323058 - 146 mmol/L06/04/2025 3:31 PM [facility] POTASSIUM4.23.5 - 5.0 mmol/L06/04/2025 3:31 PM [facility] KMOTOASQRWAMNMOKRL52291 - 109 mmol/L06/04/2025 3:31 PM [facility] LABORATORYCARBON TYZYQML7135 - 32 mmol/L06/04/2025 3:31 PM [facility] LABORATORYANION GAP4(L)5 - 15 mmol/L06/04/2025 3:31 PM EDT [facility] LABORATORYBLOOD UREA CURYMLWI282 - 23 mg/dL06/04/2025 3:31 PM [facility] LABORATORYCREATININE0.780.60 - 1.30 mg/dL 06/04/2025 3:31 PM [facility] LABORATORYComment:METHOD TRACEABLE TO IDME TBNJIMSNHQSDAZD258(H)65 - 99 mg/dL06/04/2025 3:31 PM [facility] LABORATORYCALCIUM9.48.5 - 10.5 mg/dL06/04/2025 3:31 PM [facility] LABORATORYTOTAL PROTEIN7.36.0 - 8.0 g/dL 06/04/2025 3:31 PM [facility] LABORATORYALBUMIN4.43.2 - 5.3 g/dL06/04/2025 3:31 PM [facility] LABORATORYALKALINE WGEVIQFKCKO5808 - 130 U/L06/04/2025 3:31 PM [facility] LJFFJQITWSHNR62<=41 U/L06/04/2025 3:31 PM [facility] ZNJZBXOLECWXZ74(H)<=40 U/L06/04/2025 3:31 PM [facility] LABORATORYBILIRUBIN,TOTAL0.80.3 - 1.2 mg/dL06/04/2025 3:31 PM [facility]OR[facility]ORYEGFR Non-Race Dependent>90>=60 ml/min/1.73sq.m 06/04/2025 3:31 PM [facility] LABORATORYComment: Reported eGFR is based on the CKD-EPI 2020 equation that does not use a race coefficient. Specimen (Source)Anatomical Location / LateralityCollection Method / Volume Collection TimeReceived TimeBloodVenous blood / UnknownVenipuncture / Unknown 06/04/2025 8:44 AM EDT06/04/2025 8:44 AM EDT Narrative Authorizing ProviderResult TypeResult StatusCharles [facility] DOLAB BLOOD ORDERABLESFinal ResultPerforming OrganizationAddressCity/State/ZIP CodePhone Number [facility] [address] [place] [address], from Last 3 Months Insurance Care Teams Team MemberRelationshipSpecialtyStart DateEnd Date Kalin, Haseeb Gonsalez DO PCP - General10/23/23
== END 2025-08-12 11:49 | disposition home or self-care (01) ==
LOC: FHNEUROLOG 11:48
PROVIDERS: PCP Family Medicine; Visit Provider Psychiatry & Neurology Neurology
DX: G47.33 Obstructive sleep apnea (adult) (pediatric) (principal); R09.02 Hypoxemia
CPT/HCPCS: G0463